=== PATIENT | female | born 1945 | race Caucasian/White ===

== ENCOUNTER 2016-08-11 09:48 | Inpatient (IN) | payer OTHER, MEDICARE ==
[~2016-08-11] VITALS: Ht 162.6 cm; Wt 73.4 kg
--- NOTE | ~2016-08-11 | EKG ---
[address] [address] ELECTROCARDIOGRAM REPORT Name: IVETTE ANTUNEZ Room #: 202-P ADM IN M.R.#: [id number] Admission: 08/11/16 Attend Phys: Johnnie Ramires Discharge: Date of : 41 Report #: [id number] THIS REPORT FOR: //name// 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
--- NOTE | ~2016-08-11 | 2DMMODE ---
[facility] [employer] [place] [address] 2 D/M-MODE ECHOCARDIOGRAM Name: HARMONYIVETTE Shae Room #: 202-P [facility] IN [facility].#: [id number] Admission: 08/11/16 Attend Phys: Johnnie Guaman Discharge: Date of : 41 Date of Service: 08/12/16 1129 Report #: [id number] THIS REPORT FOR: //name// APPROVED REPORT Study performed: 08/12/2016 09:16:33 EXAM: Comprehensive 2D, Doppler, and color-flow Echocardiogram Patient Location: Bedside Blood Pressure: 120/56 mmHg HR: 75 bpm Rhythm: Atrial Fibrillation Other Information Study Quality: Good Indications Atrial Fibrillation Hypertension/HDD 2D Dimensions RVDd: 34.02 mm LVEF(%): 55.66 (>50%) IVSd: 10.94 (7-11mm) LVOT Diam: 18.27 (18-24mm) LVDd: 40.20 mm PWd: 10.95 (7-11mm) Ascending Aorta: 34.44 mm LVDs: 28.70 (25-40mm) IVC: 23.00 mm Aortic Root: 31.70 mm Stern's LVEF: 55.66 % Volumes Left Atrial Volume (Systole) Single Plane 4CH: 59.23 mL Single Plane 2CH: 76.73 mL LA ESV Index: 41.00 mL/m2 Aortic Valve AoV Peak Cristofer.: 1.53 m/s AO Peak Gr.: 9.43 mmHg LV Max P.92 mmHg LV Max: 1.11 m/s Mitral Valve MV E Max Cristofer.: 1.27 m/s MV Decel. Time: 185.80 ms [facility] [employer] [place] [address] 2 D/M-MODE ECHOCARDIOGRAM Name: IVETTE ANTUNEZ Room #: 202-P [facility] IN [facility].#: [id number] Admission: 08/11/16 Attend Phys: Johnnie Guaman Discharge: Date of : 41 Date of Service: 08/12/16 1129 Report #: [id number] Pulmonary Valve PV Peak Cristofer.: 1.18 m/s PV Peak Gr.: 5.56 mmHg Tricuspid Valve TR Peak Cristofer.: 2.60 m/s RAP Estimate: 10.00 mmHg TR Peak Gr.: 27.16 mmHg Left Ventricle The left ventricle is normal size. There is normal LV segmental wall motion. There is normal left ventricular wall thickness. The left ventricular systolic function is normal. The left ventricular ejection fraction is within the normal range. LVEF is 60-65%. Diastolic function cannot be accurately assessed. Right Ventricle The right ventricle is normal size. The right ventricular systolic function is normal. Atria Left atrium is dilated. The right atrium size is normal. Aortic Valve Aortic valve is trileaflet. Aortic valve is calcified. Mild aortic regurgitation. There is no aortic valvular stenosis. Mitral Valve The mitral valve is normal in structure. Mitral valve leaflets are calcified. Trace mitral regurgitation. Tricuspid Valve The tricuspid valve is normal in structure. There is trace tricuspid regurgitation. The right atrial pressure is estimated at 10 mmHg. There is mild pulmonary hypertension. The estimated PAP was 37 mmHg. Pulmonic Valve The pulmonary valve is normal in structure. There is no pulmonic valvular regurgitation. Great Vessels The aortic root is normal in size. IVC is dilated and collapses >50% with inspiration. Pericardium There is no pericardial effusion. [facility] [place] [address] 2 D/M-MODE ECHOCARDIOGRAM Name: IVETTE ANTUNEZ Shae Room #: 202-P ADM IN M.R.#: [id number] Admission: 08/11/16 Attend Phys: Johnnie Guaman Discharge: Date of : 41 Date of Service: 08/12/16 1129 Report #: [id number] <Conclusion> The left ventricle is normal size. LVEF is 60-65%. Left atrium is dilated. Aortic valve is trileaflet. Aortic valve is calcified. Mild aortic regurgitation. The mitral valve is normal in structure. Mitral valve leaflets are calcified. Trace mitral regurgitation. <ELECTRONICALLY SIGNED> By: Leon Gillis MD 08/12/16 1129 1129 1129 Leon Gillis MD /INF
--- NOTE | ~2016-08-11 | EKG ---
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 : 1945 Requested By: Alissa Sher Order Number: [id number] MD: Raghav Ortega Measurements Intervals [place] Rate: 78 P: 7 RI: 125 QRS: -4 QRSD: 107 T: -17 QT: 382 QTc: 436 Interpretive Statements Sinus rhythm Atrial premature complexes Borderline T abnormalities, inferior leads Compared to ECG 06/16/2016 10:49:41 Atrial premature complex(es) now present T-wave abnormality now present Myocardial infarct finding no longer present Electronically Signed On 08-12-2016 13:39:50 CDT by Raghav Ortega [email or web address] <ELECTRONICALLY SIGNED> By: Raghav Ortega MD 08/12/16 1339 0823 Raghav Ortega MD /EPI
[~2016-08-11 09:48] MED LIST: ADULT LOW DOSE81 MG PO; ASACOL400 MG PO; CALCIUM 500 +1 EACH PO; FISH OIL 1,0001 EAC8 PO; FOLIC ACID1 MG PO; FOSAMAX 70 MG T70 M1 PO; LEVOTHYROXIN0.125 M1 PO; LIALDA1.2 GM PO; LISINOPRIL PO; LISINOPRIL20 MG PO; LIVALO4 MG PO; LOMOTIL TABLET1 EACH PO; MOBIC15 MG PO; MULTI VITAMIN1 EACH PO; NORCO 5-325 TA1 EACH PO; PLAVIX 75 MG TA75 M1 PO; PLAVIX 75 MG TA75 MG PO; PRAVACHOL40 MG PO; STRESS B1 EAC1 PO; SULFASALAZINE500 M4 PO; TOPROL XL25 MG PO; VITAMIN B-12500 MCG PO; VITAMIN C500 M1 PO; VITAMIN E400 UNIT PO; ZYRTEC 10 MG TA10 MG PO
[2016-08-11 09:50] VITALS: BP 95/54
[2016-08-11 10:34] LABS: HEMATOCRIT 32.3 % (37.0-47.0); HEMOGLOBIN 10.7 gm/dL (12.0-15.0); MANUAL DIFF YES; MCH 26.1 pg (26.0-34.0); MCHC 33.2 g/dL (28.0-37.0); MCV 78.7 fL (80.0-100.0); PLATELET COUNT 323 thou/uL (150-400); RBC 4.11 mil/uL (4.20-5.00); RDW 16.1 % (10.5-14.5); WBC 8.3 thou/uL (4.0-11.0)
[2016-08-11 10:40] LABS: CALCIUM 8.6 mg/dL (8.5-10.1); CREATININE 1.4 mg/dL (0.6-1.3); POTASSIUM 3.9 mmol/L (3.5-5.1)
[2016-08-11 10:45] LABS: ALBUMIN 2.2 g/dL (3.4-5.0); DIRECT BILIRUBIN 0.1 mg/dL (<0.1-0.3); TOTAL BILIRUBIN 0.5 mg/dL (<0.1-1.0); TOTAL PROTEIN 5.5 g/dL (6.4-8.2)
[2016-08-11] MEDS ORDERED: LISINOPRIL20 MG PO (10:50)
[2016-08-11 10:57] LABS: ABSOLUTE NEUTROPHILS 6.1 thou/uL (1.4-8.2); PLATELET ESTIMATE NORMAL; TOTAL CELL COUNT 100
[2016-08-11 10:58] LABS: ANISOCYTOSIS 1+; MICROCYTES 1+
[2016-08-11 10:59] LABS: OVALOCYTES OCCASIONAL; POIKILOCYTOSIS SLIGHT
[2016-08-11 11:09] LABS: INR 1.2; PROTIME 12.7 Seconds (9.3-11.4)
[2016-08-11 13:07] VITALS: BP 94/70
[2016-08-11 13:50] VITALS: BP 110/69
[2016-08-11 19:27] VITALS: BP 115/68
[2016-08-12] VITALS (7 sets, daily range): BP systolic 101–123; BP diastolic 47–73
[2016-08-12 04:21] LABS: ALBUMIN 1.9 g/dL (3.4-5.0); CALCIUM 7.8 mg/dL (8.5-10.1); CREATININE 1.2 mg/dL (0.6-1.3); MAGNESIUM 1.6 mg/dL (1.8-2.4); POTASSIUM 4.1 mmol/L (3.5-5.1); TOTAL BILIRUBIN 0.3 mg/dL (<0.1-1.0); TOTAL PROTEIN 5.1 g/dL (6.4-8.2)
[2016-08-12 04:37] LABS: HEMATOCRIT 30.1 % (37.0-47.0); MCH 26.3 pg (26.0-34.0); MCHC 33.1 g/dL (28.0-37.0); MCV 79.6 fL (80.0-100.0); PLATELET COUNT 314 thou/uL (150-400); RBC 3.78 mil/uL (4.20-5.00); RDW 16.3 % (10.5-14.5); WBC 6.7 thou/uL (4.0-11.0)
[2016-08-12 04:43] LABS: MANUAL DIFF YES
[2016-08-12 04:59] LABS: % SATURATION 10 % (20-39); IRON 12 ug/dL (50-170); TIBC 115 ug/dL (250-450); UIBC 103 ug/dL
[2016-08-12 08:14] LABS: ABSOLUTE NEUTROPHILS 4.4 thou/uL (1.4-8.2); METAMYELOCYTES 1 %; TOTAL CELL COUNT 100
[2016-08-12 08:15] LABS: TOXIC GRANULATION 1+
[2016-08-12 08:16] LABS: ANISOCYTOSIS 1+; PLATELET ESTIMATE NORMAL
[2016-08-13 03:18] LABS: CALCIUM 7.4 mg/dL (8.5-10.1); CREATININE 1.1 mg/dL (0.6-1.3); POTASSIUM 3.9 mmol/L (3.5-5.1)
[2016-08-13 03:21] LABS: ALBUMIN 1.8 g/dL (3.4-5.0); TOTAL BILIRUBIN 0.3 mg/dL (<0.1-1.0); TOTAL PROTEIN 4.7 g/dL (6.4-8.2)
[2016-08-13 03:37] VITALS: BP 136/75
[2016-08-13 08:05] VITALS: BP 116/64
[2016-08-13 11:10] VITALS: BP 108/63
[2016-08-13 13:05] VITALS: BP 144/75
[2016-08-13 19:50] VITALS: BP 120/74
[2016-08-14 00:30] VITALS: BP 113/63
[2016-08-14 03:40] VITALS: BP 101/60
[2016-08-14 04:32] LABS: ALBUMIN 1.5 g/dL (3.4-5.0); CALCIUM 6.6 mg/dL (8.5-10.1); CREATININE 1.2 mg/dL (0.6-1.3); MAGNESIUM 1.8 mg/dL (1.8-2.4); POTASSIUM 3.8 mmol/L (3.5-5.1); TOTAL BILIRUBIN 0.2 mg/dL (<0.1-1.0); TOTAL PROTEIN 4.5 g/dL (6.4-8.2)
[2016-08-14 07:15] VITALS: BP 152/90
[2016-08-14 12:10] VITALS: BP 102/59
[2016-08-14 16:15] VITALS: BP 100/63
[2016-08-14 19:23] VITALS: BP 104/63
[2016-08-15 03:16] LABS: ALBUMIN 1.6 g/dL (3.4-5.0); CALCIUM 6.5 mg/dL (8.5-10.1); CREATININE 0.9 mg/dL (0.6-1.3); MAGNESIUM 1.7 mg/dL (1.8-2.4); POTASSIUM 3.9 mmol/L (3.5-5.1); TOTAL BILIRUBIN 0.2 mg/dL (<0.1-1.0); TOTAL PROTEIN 3.8 g/dL (6.4-8.2)
[2016-08-15 03:32] VITALS: BP 123/65
[2016-08-15 07:16] VITALS: BP 116/56
[2016-08-15 07:20] VITALS: BP 141/63
[2016-08-15 11:35] VITALS: BP 113/63
[2016-08-15 19:46] VITALS: BP 117/68
[2016-08-16 03:50] VITALS: BP 119/79
[2016-08-16 07:15] VITALS: BP 116/74
[2016-08-16] MEDS ORDERED: FLAGYL 250 MG250 MG PO (08:49)
[2016-08-16] MEDS ORDERED: PRADAXA75 MG PO (08:50)
[2016-08-16] MEDS ORDERED: PACERONE 200 M200 M1 PO (08:50)
[2016-08-16] MEDS ORDERED: FLORANEX PACKET1 GM PO (08:51)
[2016-08-16] MEDS ORDERED: PANTOPRAZOLE SO40 M1 PO (08:51)
[2016-08-16] MEDS ORDERED: CARDIZEM CD 18180 M3 PO (09:00)
[2016-08-16] MEDS ORDERED: TOPROL XL25 MG PO (10:50)
[2016-08-16 11:30] VITALS: BP 104/65
== END 2016-08-16 14:52 | DRG 391 ==
LOC: ER 09:48 → EROBS 12:34 → 2N 12:34
PROVIDERS: Emergency Medicine; Hospitalist; Internal Medicine Gastroenterology; Nurse Practitioner
DX: A09 Infectious gastroenteritis and colitis, unspecified (principal); N17.0 Acute kidney failure with tubular necrosis; E43 Unspecified severe protein-calorie malnutrition; K50.90 Crohn's disease, unspecified, without complications; I48.92 Unspecified atrial flutter; I10 Essential (primary) hypertension; E78.5 Hyperlipidemia, unspecified; I25.10 Atherosclerotic heart disease of native coronary artery without angina pectoris; I73.9 Peripheral vascular disease, unspecified; I95.9 Hypotension, unspecified; I71.4 Abdominal aortic aneurysm, without rupture; I48.0 Paroxysmal atrial fibrillation; E83.42 Hypomagnesemia; R53.81 Other malaise; Z88.2 Allergy status to sulfonamides; Z88.0 Allergy status to penicillin; Z95.828 Presence of other vascular implants and grafts; Z79.01 Long term (current) use of anticoagulants; Z79.82 Long term (current) use of aspirin; Z87.891 Personal history of nicotine dependence; Z80.8 Family history of malignant neoplasm of other organs or systems; Z82.49 Family history of ischemic heart disease and other diseases of the circulatory system
CPT/HCPCS: 10081

== ENCOUNTER → 2016-09-09 | Outpatient (CLI) | payer OTHER, MEDICARE ==
[~2016-09-09] VITALS: Ht 162.6 cm; Wt 71.7 kg
[~2016-09-09] MED LIST changes: +ACIDOPHILUS1 EAC3 PO; +AMIODARONE PO; +B COMPLETE1 EAC1 PO; +CARDIZEM CD 18180 M3 PO; +CELEXA10 MG PO; +DIFLUCAN PO; +FLAGYL 250 MG250 MG PO; +FLORANEX GRANU1 EACH PO; +FLORANEX PACKET1 GM PO; +FUROSEMIDE 20 M20 MG PO; +HYDROCODONE-AP1 EAC6 PO; +PACERONE 200 M200 M1 PO; +PANTOPRAZOLE SO40 M1 PO; +PRADAXA75 MG PO; +[UNRECOGNIZED DRUG - OTHER] TOP
--- NOTE | ~2016-09-09 | P ---
[facility] [place] [address] PROCEDURE REPORT Name: IVETTE ANTUNEZ Room #: REG KIRSTEN Sonia#: [id number] Admission: 09/09/16 Attend Phys: Marcelo Rajput Discharge: Date of : 41 Report #: [id number] THIS REPORT FOR: //name// CC: Marcelo Francis MD DATE OF SERVICE: 09/09/2016 PROCEDURE PERFORMED: Flexible sigmoidoscopy with biopsies. HISTORY OF PRESENT ILLNESS: The patient is a 71-year-old female with a history of Crohn's disease. Last colonoscopy was 12/12/2012. At that time, 2 small polyps were noted as well as sigmoid diverticulosis, internal hemorrhoids, but otherwise normal. There were no ulcerations at that time. The patient has been having chronic diarrhea. She is on Lialda, taking 2 per day. She is also taking Lomotil as well as multiple other medications. Plan is for colonoscopy. DESCRIPTION OF PROCEDURE: The risks and benefits of the procedure were explained to the patient, those risks including but not limited to bleeding, perforation and the risk of sedation. She understood these risks and gave informed consent. Sedation was given using propofol per anesthesia. Digital rectal exam was initially performed, which showed external hemorrhoids and skin excoriation. Next, using a standard adicate timeadsinon colonoscope, the scope was placed in the patient's anus and advanced under direct vision into the distal sigmoid colon, at which point, there was obvious severe colitis. I was unable to advance the scope through this area because of narrowing. At this point, the scope was then withdrawn and a standard Fujinon upper endoscope was then placed in the patient's anus. I was able to advance the upper scope through the sigmoid colon into the descending colon. I was not able to advance the scope any further than that. The prep was fair. I did obtain stool samples and sent for studies including WBC, C. diff, Giardia and culture. There was evidence of severe active inflammation colitis throughout the left colon that was seen today. The colitis was somewhat more mild in the descending colon. Several biopsies were obtained. As the scope was slowly withdrawn into the sigmoid colon, the colitis became more severe with deep ulcerations. Biopsies in this area were also obtained. The severe colitis continued to the rectum and biopsies were obtained in this area as well. At this point, the scope was then withdrawn and the procedure terminated. The patient tolerated the procedure well. IMPRESSION: Severe colitis consistent with active Crohn's disease throughout the entire left colon. Unable to pass a standard Fujinon colonoscope through this area. I was able to pass an upper scope, however, not able to advance it any further then near the splenic flexure due to the length of scope. Multiple biopsies were obtained as well as stool samples sent for further studies. [address] [address] PROCEDURE REPORT Name: IVETTE ANTUNEZ VANIA Room #: REG KIRSTEN Scott#: [id number] Admission: 09/09/16 Attend Phys: Marcelo Rajput Discharge: Date of : 41 Report #: [id number] RECOMMENDATIONS: 1. Await biopsy and stools studies. 2. We will likely increase her Lialda at this time. May need to consider other options including steroids, Entocort potentially, possibly Imuran or even Remicade or Humira in the near future as well. We will need to discuss these options with the patient after pathology report is complete. Thank you for allowing me to participate in her care. By: 0845 1209 Marcelo Pollard MD /nt
--- NOTE | ~2016-09-09 | S ---
[facility] [address] [place] [address] SURGICAL PATH RPT PROCEDURE Name: IVETTE ANTUNEZ Room #: REG KIRSTEN Scott#: [id number] Admission: 09/09/16 Date of : 41 Discharge: Report #: [id number] Path Case #: [id number] PATHOLOGY REPORT DRAFT COLLECTION DATE: 09/09/2016 RECEIVED DATE: 09/09/2016 SPECIMEN(S) RECEIVED: A.Descending random B.Sigmoid random C.Rectum random
== END | disposition home or self-care (01) ==
LOC: GI 07:12
DX: K51.50 Left sided colitis without complications (principal); I10 Essential (primary) hypertension; I73.9 Peripheral vascular disease, unspecified; E03.9 Hypothyroidism, unspecified; E78.5 Hyperlipidemia, unspecified; F32.9 Major depressive disorder, single episode, unspecified; Z86.010 Personal history of colon polyps; Z87.891 Personal history of nicotine dependence; Z98.890 Other specified postprocedural states
CPT/HCPCS: 62110; 62900

== ENCOUNTER 2016-10-17 15:14 | Inpatient (IN) | payer OTHER, MEDICARE ==
[2016-10-17] VITALS (26 sets, daily range): BP systolic 79–131; BP diastolic 37–86
[~2016-10-17] VITALS: Ht 162.6 cm; Wt 71.2 kg
--- NOTE | ~2016-10-17 | EKG ---
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 : 1945 Requested By: Parag Marlow Order Number: [id number] MD: Gunner Neville Measurements Intervals [place] Rate: 36 P: PA: QRS: 67 QRSD: 105 T: 0 QT: 566 QTc: 438 Interpretive Statements Junctional rhythm Borderline low voltage, extremity leads Nonspecific T abnrm Compared to ECG 08/12/2016 08:23:06 Junctional bradycardia now present Electronically Signed On 10-18-2016 8:45:02 CDT by Gunner eNville [email or web address] <ELECTRONICALLY SIGNED> By: Gunner Neville MD, [facility] 10/18/16 0845 1524 1524 Gunner Neville MD, [facility] /EPI
--- NOTE | ~2016-10-17 | EKG ---
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 : 1945 Requested By: Martin Alfaro Order Number: [id number] MD: Raghav Ortega Measurements Intervals [place] Rate: 114 P: SC: QRS: -1 QRSD: 96 T: 238 QT: 308 QTc: 425 Interpretive Statements Atrial fibrillation Probable anterior infarct, age indeterminate Compared to ECG 10/17/2016 15:24:24 Myocardial infarct finding now present Junctional rhythm no longer present Electronically Signed On 10-18-2016 16:11:29 CDT by Raghav Ortega [email or web address] <ELECTRONICALLY SIGNED> By: Raghav Ortega MD 10/18/16 1611 1213 1213 Raghav Ortega MD /EPI
--- NOTE | ~2016-10-17 | HC ---
[facility] [place] [address] CONSULTATION Name: IVETTE ANTUNEZ Room #: 304-P [facility] IN M.R.#: [id number] Admission: 10/17/16 Attend Phys: Ralph Bowie MD Discharge: 10/24/16 Date of : 41 Report #: [id number] THIS REPORT FOR: //name// CC: Ralph Francis DATE OF SERVICE: 10/21/2016 HISTORY OF PRESENT ILLNESS: The patient is a 71-year-old white female with history of Crohn disease, hypertension, hyperlipidemia, recent AAA repair back in June, had returned home a couple of weeks ago from a prolonged recovery. She was doing reasonably well, and then, she began having worsening diarrhea and increasing weakness. She was admitted to [facility] with bradycardia and the heart rate in the 30s and 40s. She was noted to have significant hyperkalemia, had acute renal insufficiency, atrial fibrillation. She has severe protein-calorie malnutrition, on TPN. She has C. diff. colitis and has the prior history of Crohn disease and is on vancomycin and Flagyl with gastroenterology involved. P.o. intake is being encouraged. She also developed some posterior skin breakdown from the diarrhea. She has medical complexity with generalized debilitation and is quite weak and debilitated. We are seeing her in rehabilitation medicine consultation. PAST MEDICAL HISTORY: Includes the Crohn disease; AAA repair, 06/22/2016; hyperlipidemia; hypothyroidism; hypertension; history of atrial fibrillation, 08/11/2016; history of Staph in the surgical incision after her AAA repair surgery, and depression. PAST SURGICAL HISTORY: As noted above. She had interventions with stents in her left leg. She had the above AAA repair. HABITS: Former tobacco abuse 1 pack per day. There is a history of some alcohol use. FAMILY HISTORY: Cancer in her father, and her mother had heart problems. ALLERGIES: SULFA AND PENICILLIN. SOCIAL HISTORY: Lives in a house with a significant other, 3 steps in. None inside. Did not utilize gait aids. They had private duty to assist with housekeeping and laundry. REVIEW OF SYSTEMS: Did not offer any current complaints of chest pain, shortness of breath, and abdominal discomfort. Complains of the diarrhea, which has been a significant concern. She is trying to eat some thin liquids and apple sauce. Complains of overall generalized weakness. No focal extremity pain complaints. Did not offer any complaints of headache or any further bowel [facility] [address] [place] [address] CONSULTATION Name: IVETTE ANTUNEZ Room #: 304-P [facility] IN ..#: [id number] Admission: 10/17/16 Attend Phys: Ralph Bowie MD Discharge: 10/24/16 Date of : 41 Report #: [id number] or bladder changes. PHYSICAL EXAMINATION: GENERAL: She is a 71-year-old white female in no obvious distress. She is seen in the intensive care unit. She is alert and pleasant. VITAL SIGNS: Temperature is 97.4, pulse 63, respirations 14, blood pressure 115/65. HEENT: Appeared to be benign. NEUROLOGIC: Cranial nerves are grossly intact. Facies are symmetric. She has functional range of motion of both upper extremities. Strength is grade 3+ to 4-/5. DTRs are trace to 1. In the lower extremities, there is no focal calf swelling, functional range of motion with strength grade 3+ to 4-/5. She does have some edema of the upper extremities more than the lower extremities. She has been dependent for toilet transfers. She is sat at the edge of the bed with max assist. Sit to supine is max assist. Bed mobility is mod assist. ASSESSMENT: A 71-year-old white female with the following problem list: 1. Medical complexity with generalized debilitation. 2. Bradycardia and hypotension due to hyperkalemia. 3. Atrial fibrillation. 4. Acute renal failure, probable acute tubular necrosis, now improved. 5. Crohn disease. 6. Clostridium difficile colitis, on vancomycin and Flagyl. 7. Severe protein-calorie malnutrition for which she has been on TPN. 8. Hyperlipidemia. 9. History of atrial fibrillation. 10. History of tobacco abuse in the past. PLAN: She is quite weak and debilitated. She is at a lower functional level. At this point, we will follow along with you regarding her rehab therapy tolerance. Thank you for asking us to assist in this patient's care. <ELECTRONICALLY SIGNED> By: Jose Alfredo Menendez MD 10/25/16 1518 1330 0324 Jose Alfredo Menendez MD /nt
--- NOTE | ~2016-10-17 | EKG ---
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 Electronically Signed On 10-18-2016 16:07:29 CDT by Raghav Ortega [email or web address] <ELECTRONICALLY SIGNED> By: Raghav Ortega MD 10/18/16 1607 1704 1704 MD KRISTEN Aldana
--- NOTE | ~2016-10-17 | HC ---
[facility] [place] [address] CONSULTATION Name: IVETTE ANTUNEZ Room #: 240-P ADM IN M.R.#: [id number] Admission: 10/17/16 Attend Phys: Ralph Bowie MD Discharge: Date of : 41 Report #: [id number] THIS REPORT FOR: //name// CC: Ralph Francis DATE OF SERVICE: 10/17/2016 DATE OF ADMISSION: 10/17/2016. ATTENDING PHYSICIAN: . REASON FOR CONSULTATION: Hyperkalemia and acute kidney injury. HISTORY OF PRESENT ILLNESS: This 71-year-old patient with multiple medical problems, has chronic and severe diarrhea related to Crohn's disease and possible superimposed colitis. She was hospitalized at this hospital in August with those symptoms, but since being home, has continued to have very profuse diarrhea worsened lately. She was in rehab for 2 months, but really unable to walk or doing anything much on her own. With assistance, she can wall with a walker. She has her significant other at home, but he is actually more debilitated than she is. She became progressively weaker and unable to function. advised for a physician who told her 2 days ago to stop taking her potassium. She got on a new medicine for her Crohn's as well, but she is not sure what it is. She became progressively weak, came to the emergency room, was found to have a slow junctional rhythm, superimposed on chronic atrial fibrillation and heart rate in the 30s and hypotension. She has been treated for her hyperkalemia, given IV fluids and now seen in the ICU. PAST MEDICAL HISTORY: Former heavy smoker. She has peripheral arterial disease. She had a stent graft placed for abdominal aortic aneurysm 4 months ago. The hospitalization was complicated by a Staph aureus wound infection, which slowly got better but left her extremely debilitated, then she had the readmission in early August with colitis, diarrhea, and weakness. Creatinine was up to 1.4 from her baseline of 0.9 at that time. She has also a past history of atrial fibrillation with rapid ventricular response, the history of Crohn's disease as mentioned. She has had peripheral arterial stents in the left leg, and a renal arterial stent apparently performed incidentally in the year 2010. She also got hypothyroidism and hypertension. MEDICATIONS AT THE TIME OF ADMISSION: Included lisinopril at 30 mg a day, Cardizem CD at 180 mg a day, Protonix 40 mg daily, pravastatin 40 mg daily, aspirin 81 mg daily, levothyroxine 0.125 mg daily, mesalamine 2 tabs daily, fish oil, vitamin E, vitamin B12, acidophilus, amiodarone 1 tab b.i.d., vitamin B [address] [address] CONSULTATION Name: IVETTE ANTUNEZ Room #: 240-P ADM IN M.R.#: [id number] Admission: 10/17/16 Attend Phys: Ralph Bowie MD Discharge: Date of : 41 Report #: [id number] complex, metoprolol XL 25 mg daily, Lomotil, Pradaxa 75 mg daily, Celexa 10 mg daily, furosemide 20 mg daily, calcium, Zyrtec, Fosamax once a week, and she was on potassium, I am not sure of the dose, that was just stopped 2 days ago. SOCIAL HISTORY: She is a very heavy smoker, stopped just a couple of months ago, not much alcohol. Lives with her significant other at home. Closet family is her niece. REVIEW OF SYSTEMS: GENERAL: She has been feeling poorly and weak. EYES: Her vision is reasonably good. ENT: Hearing okay, and swallows okay. Denies mouth ulcers. ENDOCRINE: No diabetes. She does have thyroid disease, on replacement. RESPIRATORY: Not really short of breath, although she does get winded with exertion. CARDIAC: She has had chronic atrial fib as mentioned. GASTROINTESTINAL: She has chronic profuse diarrhea. GENITOURINARY: Her urine output has been down. No dysuria or hematuria. No history of renal stone disease. NEUROLOGIC: She has generalized weakness. Nothing lateralizing or specific. Really not confused, giving a fairly lucid history. PSYCHIATRIC: Denies depression or anxiety, but she is on Celexa. FAMILY HISTORY: No renal disease. PHYSICAL EXAMINATION: GENERAL: This is a thin woman looking her stated age. SKIN: Unremarkable. SKELETAL: Nonobese. HEENT: Extraocular movements are full. No scleral icterus. Hearing and vision are intact. Mucous membranes dry. NECK: Veins are flat. No lymphadenopathy. CHEST: Clear to auscultation. HEART: Regular but slow. ABDOMEN: Soft and nontender. EXTREMITIES: No edema. Peripheral pulses diminished. LABORATORY DATA: Potassium was originally 6.9 and creatinine 3.2, BUN 73, albumin only 1.6. Hemoglobin 8.5, white count 12.7, platelets 324, bands 5% are noted. Urinalysis is pending. ASSESSMENT AND PLAN: 1. Severe hyperkalemia under treatment. She is clearly volume depleted. Volume is being given back. She also will be given back some bicarbonate for her non-anion gap metabolic acidosis. She has been given high dose albuterol. Heart rate is coming up a little bit. Blood pressure is coming up a little bit, [facility] [address] [place] [address] CONSULTATION Name: IVETTE ANTUNEZ Room #: 240-P ADM IN M.R.#: [id number] Admission: 10/17/16 Attend Phys: Ralph Bowie MD Discharge: Date of : 41 Report #: [id number] and treatment will be continued. More fluids will be given. One dose of Lasix and Kayexalate are also ordered, and another ampule of sodium bicarbonate. 2. Acute kidney injury. Creatinine up, very volume depleted. Hopefully, this will resolve as we give her fluids. 3. Chronic diarrhea secondary to Crohn's disease with possible colitis. 4. Diffuse peripheral arterial disease. 5. Status post aortic abdominal aneurysm. 6. Sacrococcygeal bed sore. 7. Chronic atrial fibrillation. DICTATION ENDS HERE. <ELECTRONICALLY SIGNED> By: Nilesh Hagan MD 10/18/16 1154 1948 0655 Martin Jean MD /nt
--- NOTE | ~2016-10-17 | 2DMMODE ---
[place] [address] [place] [address] 2 D/M-MODE ECHOCARDIOGRAM Name: IVETTE ANTUNEZ Room #: 240-P ADM IN M.R.#: [id number] Admission: 10/17/16 Attend Phys: Ralph Bowie, Discharge: Date of : 41 Date of Service: 10/18/16 1938 Report #: [id number] THIS REPORT FOR: //name// APPROVED REPORT Study performed: 10/18/2016 12:55:08 EXAM: Comprehensive 2D Echocardiogram Patient Location: ICU Room #: 240 Status: routine Other Information Study Quality: Good Indications Murmur CAD 2D Dimensions IVC: 22.00 mm Left Ventricle The left ventricle is normal size. There is normal LV segmental wall motion. There is normal left ventricular wall thickness. The left ventricular systolic function is normal. The left ventricular ejection fraction is within the normal range. LVEF is 60-65%. Diastolic function was not evaluated on this limited study. Right Ventricle The right ventricle is normal size. The right ventricular systolic function is normal. Atria Left atrium is dilated. The right atrium size is normal. Aortic Valve The aortic valve is normal in structure. Aortic valve is calcified. Mitral Valve The mitral valve is normal in structure. Tricuspid Valve The tricuspid valve is normal in structure. [address] [place] [address] 2 D/M-MODE ECHOCARDIOGRAM Name: IVETTE ANTUNEZ Room #: 240-P ADM IN M.R.#: [id number] Admission: 10/17/16 Attend Phys: Ralph Bowie, Discharge: Date of : 41 Date of Service: 10/18/161937 Report #: [id number] Great Vessels The aortic root is normal in size. IVC is dilated and collapses <50% with inspiration. Pericardium There is no pericardial effusion. <Conclusion> The left ventricle is normal size. There is normal left ventricular wall thickness. LVEF is 60-65%. Diastolic function was not evaluated on this limited study. Left atrium is dilated. The aortic valve is normal in structure. Aortic valve is calcified. The mitral valve is normal in structure. There is no pericardial effusion. <ELECTRONICALLY SIGNED> By: Martin Alfaro MD, FACC 10/18/161937 37 37 Martin Alfaro MD, FACC /INF
[2016-10-17 15:42] LABS: HEMATOCRIT 26.7 % (37.0-47.0); HEMOGLOBIN 8.5 gm/dL (12.0-15.0); MCH 26.3 pg (26.0-34.0); MCHC 31.9 g/dL (28.0-37.0); MCV 82.3 fL (80.0-100.0); PLATELET COUNT 324 thou/uL (150-400); RBC 3.25 mil/uL (4.20-5.00); RDW 20.6 % (10.5-14.5); WBC 12.7 thou/uL (4.0-11.0)
[2016-10-17 15:43] LABS: MANUAL DIFF YES
[2016-10-17 15:55] LABS: PROTIME 10.6 Seconds (9.3-11.4)
[2016-10-17 15:59] LABS: ANION GAP 10 mmol/L (7-16); BUN 73 mg/dL (7-18); CALCIUM 7.3 mg/dL (8.5-10.1); CHLORIDE 108 mmol/L (98-107); CO2 16 mmol/L (21-32); CREATININE 3.2 mg/dL (0.6-1.0); GLUCOSE 109 mg/dL (74-106); NT-PRO BRAIN NAT PEPTIDE 12306 pg/mL (<300); SODIUM 134 mmol/L (136-145); TROPONIN-I < 0.04 ng/mL (<0.04-0.07)
[2016-10-17 16:04] LABS: POTASSIUM 6.9 mmol/L (3.5-5.1)
[2016-10-17 16:13] LABS: ANISOCYTOSIS 1+; TOTAL CELL COUNT 100
[2016-10-17 19:41] LABS: CALCIUM 7.9 mg/dL (8.5-10.1); CREATININE 2.9 mg/dL (0.6-1.0)
[2016-10-17 19:46] LABS: POTASSIUM 6.3 mmol/L (3.5-5.1)
[2016-10-18] VITALS (39 sets, daily range): BP systolic 71–112; BP diastolic 39–89
[2016-10-18 00:18] LABS: CALCIUM 7.8 mg/dL (8.5-10.1); CREATININE 2.8 mg/dL (0.6-1.0)
[2016-10-18 00:20] LABS: POTASSIUM 4.8 mmol/L (3.5-5.1)
[2016-10-18 06:57] LABS: HEMATOCRIT 24.3 % (37.0-47.0); HEMOGLOBIN 7.9 gm/dL (12.0-15.0); MCHC 32.6 g/dL (28.0-37.0); MCV 79.7 fL (80.0-100.0); RBC 3.05 mil/uL (4.20-5.00); RDW 19.8 % (10.5-14.5); WBC 7.4 thou/uL (4.0-11.0)
[2016-10-18 07:11] LABS: ALBUMIN 1.3 g/dL (3.4-5.0); CALCIUM 7.1 mg/dL (8.5-10.1); CREATININE 2.2 mg/dL (0.6-1.0); PHOSPHORUS 5.6 mg/dL (2.5-4.9); POTASSIUM 4.3 mmol/L (3.5-5.1)
[2016-10-18 12:48] LABS: CALCIUM 6.9 mg/dL (8.5-10.1); CREATININE 1.8 mg/dL (0.6-1.0); POTASSIUM 4.1 mmol/L (3.5-5.1)
[2016-10-18 17:59] LABS: CALCIUM 6.7 mg/dL (8.5-10.1); CREATININE 1.5 mg/dL (0.6-1.0)
[2016-10-19] VITALS (27 sets, daily range): BP systolic 75–118; BP diastolic 39–87
[2016-10-19 00:04] LABS: CALCIUM 6.8 mg/dL (8.5-10.1); CREATININE 1.3 mg/dL (0.6-1.0); POTASSIUM 4.1 mmol/L (3.5-5.1)
[2016-10-19 02:35] LABS: HEMATOCRIT 29.4 % (37.0-47.0); HEMOGLOBIN 9.5 gm/dL (12.0-15.0); MCH 26.2 pg (26.0-34.0); MCHC 32.3 g/dL (28.0-37.0); RBC 3.63 mil/uL (4.20-5.00); RDW 20.3 % (10.5-14.5)
[2016-10-20] VITALS (24 sets, daily range): BP systolic 84–118; BP diastolic 22–93
[2016-10-20 05:49] LABS: HEMATOCRIT 25.5 % (37.0-47.0); HEMOGLOBIN 8.3 gm/dL (12.0-15.0); MCH 26.1 pg (26.0-34.0); MCHC 32.4 g/dL (28.0-37.0); MCV 80.4 fL (80.0-100.0); RBC 3.17 mil/uL (4.20-5.00); WBC 4.8 thou/uL (4.0-11.0)
[2016-10-20 06:01] LABS: ALBUMIN 1.1 g/dL (3.4-5.0); CALCIUM 6.9 mg/dL (8.5-10.1); CREATININE 0.9 mg/dL (0.6-1.0); PHOSPHORUS 2.9 mg/dL (2.5-4.9); POTASSIUM 4.2 mmol/L (3.5-5.1)
[2016-10-21] VITALS (21 sets, daily range): BP systolic 95–119; BP diastolic 47–95
[2016-10-21 05:17] LABS: MCH 26.2 pg (26.0-34.0); MCHC 32.1 g/dL (28.0-37.0); MCV 81.8 fL (80.0-100.0); RBC 3.06 mil/uL (4.20-5.00); RDW 20.1 % (10.5-14.5); WBC 5.2 thou/uL (4.0-11.0)
[2016-10-21 05:36] LABS: CALCIUM 7.1 mg/dL (8.5-10.1); CREATININE 0.7 mg/dL (0.6-1.0); POTASSIUM 4.5 mmol/L (3.5-5.1)
[2016-10-22 04:10] VITALS: BP 136/72
[2016-10-22 05:00] LABS: HEMATOCRIT 24.5 % (37.0-47.0); HEMOGLOBIN 7.7 gm/dL (12.0-15.0); MCH 25.9 pg (26.0-34.0); MCHC 31.6 g/dL (28.0-37.0); RBC 2.99 mil/uL (4.20-5.00); RDW 20.1 % (10.5-14.5); WBC 5.4 thou/uL (4.0-11.0)
[2016-10-22 05:11] LABS: CALCIUM 7.1 mg/dL (8.5-10.1); CREATININE 0.7 mg/dL (0.6-1.0); POTASSIUM 4.6 mmol/L (3.5-5.1)
[2016-10-22 08:00] VITALS: BP 120/68
[2016-10-22 16:50] VITALS: BP 154/63
[2016-10-22 20:03] VITALS: BP 104/50
[2016-10-23 04:32] LABS: HEMATOCRIT 23.4 % (37.0-47.0); HEMOGLOBIN 7.6 gm/dL (12.0-15.0); MCH 26.5 pg (26.0-34.0); MCHC 32.5 g/dL (28.0-37.0); MCV 81.4 fL (80.0-100.0); RBC 2.87 mil/uL (4.20-5.00); RDW 19.8 % (10.5-14.5); WBC 4.9 thou/uL (4.0-11.0)
[2016-10-23 04:46] LABS: CALCIUM 7.3 mg/dL (8.5-10.1); CREATININE 0.6 mg/dL (0.6-1.0); POTASSIUM 4.8 mmol/L (3.5-5.1)
[2016-10-23 08:03] VITALS: BP 149/63
[2016-10-23 15:51] VITALS: BP 133/58
[2016-10-23 19:40] VITALS: BP 147/62
[2016-10-24 04:08] VITALS: BP 121/59
[2016-10-24 06:02] LABS: HEMATOCRIT 23.7 % (37.0-47.0); HEMOGLOBIN 7.5 gm/dL (12.0-15.0); MCH 25.8 pg (26.0-34.0); MCHC 31.8 g/dL (28.0-37.0); MCV 81.1 fL (80.0-100.0); RBC 2.92 mil/uL (4.20-5.00); RDW 20.1 % (10.5-14.5); WBC 5.1 thou/uL (4.0-11.0)
[2016-10-24 06:09] LABS: CALCIUM 7.2 mg/dL (8.5-10.1); CREATININE 0.6 mg/dL (0.6-1.0); POTASSIUM 4.8 mmol/L (3.5-5.1)
[2016-10-24 08:25] VITALS: BP 108/57
[2016-10-24 08:30] VITALS: BP 108/57
[2016-10-24] MEDS ORDERED: VANCOMYCIN100 MG/ML PO (14:53)
[2016-10-24] MEDS ORDERED: PREVALITE PACKE1 PKT PO (14:54)
[2016-10-24] MEDS ORDERED: PACERONE 200 M200 M1 PO (14:54)
[2016-10-24] MEDS ORDERED: FLAGYL500 MG PO (14:54)
[2016-10-24 15:12] LABS: HEP B SURFACE Ab(ANTI-HBS Non Reactive (())
== END 2016-10-24 17:00 | DRG 682 ==
LOC: ER 15:14 → EROBS 16:42 → ICU 16:42 → 3N 10-21 16:33
PROVIDERS: Emergency Medicine; Hospitalist; Internal Medicine; Internal Medicine Nephrology; Specialist
PROC: 02HV33Z Insertion of Infusion Device into Superior Vena Cava, Percutaneous Approach (ICD-10-PCS; principal; 2016-10-19)
DX: N17.9 Acute kidney failure, unspecified (principal); E43 Unspecified severe protein-calorie malnutrition; A04.7 Enterocolitis due to Clostridium difficile; K50.90 Crohn's disease, unspecified, without complications; E87.2 Acidosis; R00.1 Bradycardia, unspecified; E87.5 Hyperkalemia; E78.5 Hyperlipidemia, unspecified; E03.9 Hypothyroidism, unspecified; I10 Essential (primary) hypertension; I73.9 Peripheral vascular disease, unspecified; L89.159 Pressure ulcer of sacral region, unspecified stage; E86.9 Volume depletion, unspecified; F32.9 Major depressive disorder, single episode, unspecified; I95.9 Hypotension, unspecified; I25.10 Atherosclerotic heart disease of native coronary artery without angina pectoris; Z96.0 Presence of urogenital implants; D64.9 Anemia, unspecified; T50.905A Adverse effect of unspecified drugs, medicaments and biological substances, initial encounter; R21 Rash and other nonspecific skin eruption; I48.0 Paroxysmal atrial fibrillation; Z60.2 Problems related to living alone; I25.82 Chronic total occlusion of coronary artery; Z68.26 Body mass index [BMI] 26.0-26.9, adult; Z87.891 Personal history of nicotine dependence; Z88.0 Allergy status to penicillin; Z88.2 Allergy status to sulfonamides; Z82.49 Family history of ischemic heart disease and other diseases of the circulatory system; Z80.9 Family history of malignant neoplasm, unspecified; Z79.82 Long term (current) use of aspirin; Z79.899 Other long term (current) drug therapy; Z95.820 Peripheral vascular angioplasty status with implants and grafts; Z79.01 Long term (current) use of anticoagulants; Z98.51 Tubal ligation status; Y92.89 Other specified places as the place of occurrence of the external cause
CPT/HCPCS: 10078; 10795; 27000

== ENCOUNTER 2016-10-24 11:43 | Inpatient (IN) | payer OTHER, MEDICARE ==
[~2016-10-24] VITALS: Ht 162.6 cm; Wt 73.6 kg
--- NOTE | ~2016-10-24 | H ---
[facility] [place] [address] HISTORY AND PHYSICAL Name: IVETTE ANTUNEZ Room #: 512-P ADM IN M.R.#: [id number] Admission: 10/24/16 Attend Phys: Jose Alfredo Menendez MD Discharge: Date of : 41 Report #: [id number] THIS REPORT FOR: //name// CC: Jose Alfredo Francis DATE OF SERVICE: 10/24/2016 HISTORY OF PRESENT ILLNESS: The patient is a 71-year-old white female with history of Crohn's disease, hypertension, hyperlipidemia, recent AAA repair in June who had returned home with couple of weeks ago from a prolonged recovery. She was doing reasonably well, when she began having worsening diarrhea and increased weakness. She was admitted to [facility] with bradycardia and heart rate in 30s-40s. She was noted to have significant hyperkalemia, had acute renal insufficiency, atrial fibrillation and severe protein-calorie malnutrition for which she was on TPN. She had C. diff colitis, has a prior history of Crohn's disease on vancomycin and Flagyl with Gastroenterology involved. She also developed some posterior skin breakdown from the diarrhea. She was able to be taken off the TPN just prior to rehabilitation transfer. She is noted to have medical complexity with generalized debilitation. She has now been admitted for acute in-hospital inpatient rehabilitation. PAST MEDICAL HISTORY: Includes Crohn's disease, AAA repair 06/22/2016, hyperlipidemia, hypothyroidism, hypertension, history of atrial fibrillation, 08/11/2016, history of Staph and a surgical incision after her AAA repair surgery and depression. PAST SURGICAL HISTORY: She has had interventions with stent in left leg. She has had the above AAA repair. HABITS: Former tobacco abuse 1 pack per day. There is a history of some alcohol use. FAMILY HISTORY: Cancer in her father and her mother had heart problems. ALLERGIES: SULFA AND PENICILLIN. SOCIAL HISTORY: Lives in a house with a significant other, 3 steps in. None inside. She did not utilize gait aids premorbidly. They had private duty to assist with housekeeping and laundry. REVIEW OF SYSTEMS: No complaints of chest pain, shortness of breath. She had some nausea earlier, was given Zofran. Complains of overall generalized weakness. [facility] [address] [place] [address] HISTORY AND PHYSICAL Name: IVETTE ANTUNEZ CROCKER Room #: 512-P [facility] IN ..#: [id number] Admission: 10/24/16 Attend Phys: Jose Alfredo Menendez MD Discharge: Date of : 41 Report #: [id number] PHYSICAL EXAMINATION: GENERAL: A 71-year-old white female who was seen earlier. She was in no obvious distress and was somewhat sleepy. VITAL SIGNS: Temperature 36.8, pulse 80, respirations 24, blood pressure 118/56. HEENT: Appeared to be benign. Facies appeared symmetric. CHEST: Sounded clear to auscultation. CARDIOVASCULAR: Sounded regular with extra beats. ABDOMEN: She may be slightly distended, bowel sounds positive. GENITOURINARY AND RECTAL: Deferred. EXTREMITIES: She has the dressing clean, dry and intact on sacral wounds. She needs encouragement to turn. Functional range of motion of both upper and lower extremities with strength grade 3+ to 4-/5. She has been min assist for basic transfers and has started to ambulate just a few short steps prior to her admission to the rehab sy. There is no focal calf swelling. ASSESSMENT: A 71-year-old white female with the following problem list: 1. Medical complexity with generalized debilitation. 2. Bradycardia and hypotension due to hyperkalemia. 3. Atrial fibrillation. 4. Acute renal failure, probably acute tubular necrosis, now improved. 5. Crohn's disease. 6. Clostridium difficile colitis for which she has been on vancomycin and Flagyl. 7. Severe protein calorie malnutrition, for which she was on TPN. 8. Hyperlipidemia. 9. History of atrial fibrillation. 10. History of tobacco abuse in the past. 11. Sacral wound with wound care nurse involved. PLAN: The patient is admitted for acute in-hospital inpatient rehabilitation. From a postadmission physician evaluation perspective, there are no relevant changes since the preadmission screening. Please see the above review of prior and current medical and functional conditions and comorbidities. Please see the patient's previous and current functional status. As far as risk of complications, she has the multiple medical comorbidities as noted above. Initial plan of care involves the interdisciplinary acute inpatient rehabilitation program with the goal of maximizing the patient's functional independence, so that she can hopefully return back to her prior living situation. Measurable functional goals would be for her to hopefully improve with her functional mobility to be ambulatory at the walker level and to be independent with basic ADLs. Prognosis is reasonably good with estimated length of stay probably fairly long as she is at a lower level functionally. Potential barriers would include her multiple medical comorbidities and decreased functional status. [facility] [address] [place] [address] HISTORY AND PHYSICAL Name: IVETTE ANTUNEZ Room #: 512-P ADM IN M.R.#: [id number] Admission: 10/24/16 Attend Phys: Jose Alfredo Menendez MD Discharge: Date of : 43 Report #: [id number] The patient meets diagnostic criteria for an acute in-hospital inpatient rehabilitation stay. She meets medical necessity criteria and we will have the multiple reporting process consultant physicians continue to follow. She will need to have continued close follow regarding her wound care issues. She does have the tolerance for an acute inpatient rehabilitation stay and has appropriate discharge goals back to the home setting. <ELECTRONICALLY SIGNED> By: Jose Alfredo Menendez MD 10/25/16 1518 1055 1158 Jose Alfredo Menendez MD /nt
--- NOTE | ~2016-10-24 | HC ---
[facility] [place] [address] CONSULTATION Name: IVETTE ANTUNEZ Room #: 512-P ADM IN M.R.#: [id number] Admission: 10/24/16 Attend Phys: Jose Alfredo Menendez MD Discharge: Date of : 41 Report #: [id number] THIS REPORT FOR: //name// CC: Jose Alfredo Francis REASON FOR CONSULTATION: I was asked to evaluate C. difficile colitis in the setting of Crohn's disease. HISTORY OF PRESENT ILLNESS: The patient was a 71-year-old with longstanding Crohn's disease that is well controlled on Lialda. In June, she underwent an endovascular stent of her abdominal aortic aneurysm. This subsequently was complicated by incisional infection that was treated with antibiotic therapy. She was on doxycycline for this. Subsequently, she developed diarrhea, which was fairly new for her. Trial of metronidazole did not improve situation. She was hospitalized in August, found to have atrial fibrillation with rapid ventricular response. CT scan did show evidence of pancolitis, mostly in the descending colon. C. difficile was negative. She was set up for an outpatient flexible sigmoidoscopy, which was completed on September 09. This showed severe colitis. From this, she was started on Imuran and prednisone 40 mg a day and began a taper. Despite this, she continues to have diarrhea. She was rehospitalized and placed on vancomycin and metronidazole this past week. Stool studies now show C. difficile positive. She has not had a repeat imaging or endoscopy. Since being on metronidazole and vancomycin, she has noted that her stools have improved some, but she still has distention and frequent loose stools, mild cramping. No nausea or vomiting. She has several stools a day. Denies any fever, chills or sweats. ALLERGIES: SULFA AND PENICILLIN. MEDICATIONS: As noted on her MAR including vancomycin and metronidazole . PAST MEDICAL HISTORY: In addition to the above, she has had coronary artery disease, carotid artery disease, hypertension, hyperlipidemia, hypothyroidism, tubal ligation, bilateral iliac stents, right renal stent. FAMILY HISTORY: Cancer, coronary disease. SOCIAL HISTORY: Nonsmoker, smoked cigarettes up until this past year. No HIV risks. REVIEW OF SYSTEMS: No cough, sputum, nausea or vomiting. No dysuria. She does have peripheral edema, which is a newer issue for her. Her atrial fibrillation appears to be well controlled now. PHYSICAL EXAMINATION: VITAL SIGNS: She is afebrile, hemodynamically stable. [facility] [address] [place] [address] CONSULTATION Name: IVETTE ANTUNEZ Room #: 512-P [place] IN [facility].#: [id number] Admission: 10/24/16 Attend Phys: Jose Alfredo Menendez MD Discharge: Date of : 41 Report #: [id number] GENERAL: She is sitting up in a chair, did need assistance on standing. HEENT: Unremarkable. CHEST: Clear. HEART: Regular, without murmur. ABDOMEN: Distended, nontender, no other masses appreciated. No hepatosplenomegaly. EXTREMITIES: Her groin incisions were unremarkable with healed scar. 2+ peripheral edema with anasarca mostly in her extremities. LABORATORY STUDIES: Sodium , potassium 4.7, bicarbonate 25, creatinine 0.7. Hemoglobin 7.8, white count 7.7, platelet count 226,000. Stool culture was negative on October 24 and her abdominal x-ray does show nodular changes to the descending colon. Chest x-ray, basilar atelectasis. From 08/11/2016, CT scan of the abdomen did show descending colitis with an aortic aneurysm 4 x 4.9 cm. IMPRESSION AND PLAN: A 71-year-old with Crohn's disease, longstanding and fairly quiescent, now with persisting colitis, C. difficile positive now. I would be aggressive with her treatment program and will use intravenous metronidazole along with high dose vancomycin. We will see if we can get this to calm down. May need to repeat endoscopy and consider a fecal transplant prior to initiating her Humira or alternative biologic agent. <ELECTRONICALLY SIGNED> By: Ton Nguyễn MD 10/27/16 1047 1311 2217 Ton Nguyễn MD /nt
--- NOTE | ~2016-10-24 | PLAN ---
[facility] [place] [address] REHAB UNIT PLAN OF CARE Name: IVETTE ANTUNEZ Room #: 512-P ADM IN M.R.#: [id number] Admission: 10/24/16 Attend Phys: Jose Alfredo Menendez MD Discharge: Date of : 41 Report #: [id number] THIS REPORT FOR: //name// CC: Jose Alfredo Francis DATE OF SERVICE: 10/26/2016 HISTORY OF PRESENT ILLNESS: She still complains of some bloating and diarrhea. Overall, she notes that her edema is better. PHYSICAL EXAMINATION: Her temperature is 36.6, pulse 80, respirations 20 and blood pressure 80/55. She was documented as having 5 stools so far today. These were loose stools. She continues on the lactobacillus with Flagyl and oral vancomycin. Functionally, she is working in therapies with transfers to min assist, gait 50 feet min assist with a front-wheeled walker. In occupational therapy, lower body dressing is max assist for underwear, dependent for socks and hose. ASSESSMENT: 1. Medical complexity with generalized debilitation. 2. Bradycardia and hypotension. 3. Atrial fibrillation. 4. Acute renal failure, probably acute tubular necrosis, improved. 5. Crohn's disease. 6. Clostridium difficile colitis, for which she has been on vancomycin and Flagyl. 7. Severe protein-calorie malnutrition. She was on TPN prior to rehabilitation admission. 8. Hyperlipidemia. 9. History of atrial fibrillation. 10. Sacral wound with wound care nurse involved and picture is noted in chart. We are encouraging her to stay off of her sacral area and increasing her activity. PLAN: The overall plan of care is based on the preadmission screen, post-admission physician evaluation and information garnered from therapy assessments. 1. Estimated length of stay is probably at least 10 days to 2 weeks and likely longer pending progress. 2. Medical prognosis is reasonably good. 3. Anticipated interventions includes the interdisciplinary acute inpatient rehabilitation program with PT and OT working with her, rehab nursing assisting regarding medication management, skin care prophylaxis as well as treatment of her sacral wound and medication management education. Case management is [address] [address] REHAB UNIT PLAN OF CARE Name: IVETTE ANTUNEZ Room #: 512-P ADM IN .R.#: [id number] Admission: 10/24/16 Attend Phys: Jose Alfredo Menendez MD Discharge: Date of : 41 Report #: [id number] involved as well as the multiple consulting physicians. 4. Anticipated functional outcomes would be for her to improve as far as her functional mobility and ADLs, hopefully return back to the home setting. 5. Discharge destination would be back home where she lives with her significant other. 6. Expected therapy by discipline includes PT and OT 1-1/2 hours per day each 5 days a week throughout the duration of the acute inpatient rehabilitation stay. By: 1000 1118 Jose Alfredo Menendez MD /delicia
[2016-10-24] MEDS ORDERED: VANCOMYCIN100 MG/ML PO (14:53)
[2016-10-24] MEDS ORDERED: FLAGYL500 MG PO (14:54)
[2016-10-24] MEDS ORDERED: PREVALITE PACKE1 PKT PO (14:54)
[2016-10-24] MEDS ORDERED: PACERONE 200 M200 M1 PO (14:54)
[2016-10-25 04:21] LABS: HEMATOCRIT 23.9 % (37.0-47.0); HEMOGLOBIN 7.8 gm/dL (12.0-15.0); MCH 26.4 pg (26.0-34.0); MCHC 32.8 g/dL (28.0-37.0); MCV 80.4 fL (80.0-100.0); RBC 2.97 mil/uL (4.20-5.00); RDW 20.2 % (10.5-14.5); WBC 7.7 thou/uL (4.0-11.0)
[2016-10-25 04:36] LABS: CALCIUM 7.3 mg/dL (8.5-10.1); CREATININE 0.7 mg/dL (0.6-1.0); POTASSIUM 4.7 mmol/L (3.5-5.1)
[2016-10-25 05:27] VITALS: BP 118/56
[2016-10-25 16:00] VITALS: BP 90/47
[2016-10-25 22:03] VITALS: BP 101/60
[2016-10-26 06:00] VITALS: BP 122/76
[2016-10-26 13:08] LABS: HEMATOCRIT 23.1 % (37.0-47.0); HEMOGLOBIN 7.5 gm/dL (12.0-15.0); MCH 26.4 pg (26.0-34.0); MCHC 32.5 g/dL (28.0-37.0); MCV 81.2 fL (80.0-100.0); RBC 2.85 mil/uL (4.20-5.00); RDW 19.9 % (10.5-14.5); WBC 7.1 thou/uL (4.0-11.0)
[2016-10-26 13:27] LABS: CALCIUM 7.1 mg/dL (8.5-10.1); CREATININE 0.9 mg/dL (0.6-1.0); POTASSIUM 4.5 mmol/L (3.5-5.1)
[2016-10-26 14:53] VITALS: BP 103/45; BP 98/37
[2016-10-26 18:37] VITALS: BP 103/45
[2016-10-27 03:57] VITALS: BP 117/60
[2016-10-27 05:59] LABS: HEMATOCRIT 27.3 % (37.0-47.0); HEMOGLOBIN 9.1 gm/dL (12.0-15.0)
[2016-10-27 06:11] LABS: ALBUMIN 1.3 g/dL (3.4-5.0); CALCIUM 7.1 mg/dL (8.5-10.1); CREATININE 0.9 mg/dL (0.6-1.0); MAGNESIUM 1.4 mg/dL (1.8-2.4); POTASSIUM 4.1 mmol/L (3.5-5.1); TOTAL BILIRUBIN 0.2 mg/dL (<0.1-1.0); TOTAL PROTEIN 4.5 g/dL (6.4-8.2)
[2016-10-27 15:46] VITALS: BP 110/53
[2016-10-28 02:37] VITALS: BP 118/56
[2016-10-28 08:45] VITALS: BP 97/52
[2016-10-28 16:18] LABS: HEMATOCRIT 28.7 % (37.0-47.0); HEMOGLOBIN 9.2 gm/dL (12.0-15.0); MCH 26.7 pg (26.0-34.0); MCHC 32.2 g/dL (28.0-37.0); MCV 83.1 fL (80.0-100.0); RBC 3.45 mil/uL (4.20-5.00); RDW 20.1 % (10.5-14.5); WBC 7.6 thou/uL (4.0-11.0)
[2016-10-28 16:26] LABS: CALCIUM 7.5 mg/dL (8.5-10.1); CREATININE 0.8 mg/dL (0.6-1.0); POTASSIUM 3.7 mmol/L (3.5-5.1)
[2016-10-29 04:50] VITALS: BP 109/48
[2016-10-29 16:15] VITALS: BP 95/50
[2016-10-29 17:15] LABS: HEMATOCRIT 26.4 % (37.0-47.0); HEMOGLOBIN 8.7 gm/dL (12.0-15.0); MCH 26.8 pg (26.0-34.0); MCHC 32.8 g/dL (28.0-37.0); MCV 81.9 fL (80.0-100.0); RBC 3.22 mil/uL (4.20-5.00); WBC 5.1 thou/uL (4.0-11.0)
[2016-10-29 17:24] LABS: CALCIUM 7.3 mg/dL (8.5-10.1); CREATININE 0.8 mg/dL (0.6-1.0); POTASSIUM 3.6 mmol/L (3.5-5.1)
[2016-10-30 03:36] VITALS: BP 114/62
[2016-10-30 16:15] VITALS: BP 107/51
[2016-10-31 05:05] VITALS: BP 112/57
[2016-10-31] MEDS ORDERED: IRON325 PO (17:24)
[2016-10-31] MEDS ORDERED: FLOMAX0.4 MG PO (17:24)
== END 2016-10-31 20:02 | DRG 947 ==
PROVIDERS: Family Medicine; Internal Medicine; Internal Medicine Gastroenterology; Nurse Practitioner; Physical Medicine & Rehabilitation
PROC: 30233N1 Transfusion of Nonautologous Red Blood Cells into Peripheral Vein, Percutaneous Approach (ICD-10-PCS; 2016-10-26)
PROC: B548ZZA Ultrasonography of Superior Vena Cava, Guidance (ICD-10-PCS; principal; 2016-10-31)
PROC: 02HV33Z Insertion of Infusion Device into Superior Vena Cava, Percutaneous Approach (ICD-10-PCS; principal; 2016-10-31)
PROC: B5181ZA Fluoroscopy of Superior Vena Cava using Low Osmolar Contrast, Guidance (ICD-10-PCS; principal; 2016-10-31)
DX: R53.81 Other malaise (principal); E43 Unspecified severe protein-calorie malnutrition; N17.9 Acute kidney failure, unspecified; K50.90 Crohn's disease, unspecified, without complications; A04.7 Enterocolitis due to Clostridium difficile; I95.9 Hypotension, unspecified; R00.1 Bradycardia, unspecified; I48.91 Unspecified atrial fibrillation; Z68.27 Body mass index [BMI] 27.0-27.9, adult; E78.5 Hyperlipidemia, unspecified; I25.10 Atherosclerotic heart disease of native coronary artery without angina pectoris; I10 Essential (primary) hypertension; E03.9 Hypothyroidism, unspecified; T50.905A Adverse effect of unspecified drugs, medicaments and biological substances, initial encounter; F32.9 Major depressive disorder, single episode, unspecified; F41.9 Anxiety disorder, unspecified; D64.9 Anemia, unspecified; Z79.899 Other long term (current) drug therapy; Z79.82 Long term (current) use of aspirin; Z88.2 Allergy status to sulfonamides; Z88.0 Allergy status to penicillin; Z82.49 Family history of ischemic heart disease and other diseases of the circulatory system; Z80.9 Family history of malignant neoplasm, unspecified; Z98.62 Peripheral vascular angioplasty status; Z87.891 Personal history of nicotine dependence
CPT/HCPCS: 10112

== ENCOUNTER 2016-11-12 16:00 | Inpatient (IN) | payer OTHER, MEDICARE ==
[~2016-11-12] VITALS: Ht 167.6 cm; Wt 74.1 kg
--- NOTE | ~2016-11-12 | S ---
[facility] [address] SURGICAL PATH RPT PROCEDURE Name: SHEA SIN Room #: 453-P ADM IN M.R.#: [id number] Admission: 11/12/16 Date of : 41 Discharge: Report #: [id number] Path Case #: [id number] PATHOLOGY REPORT COLLECTION DATE: 11/17/2016 RECEIVED DATE: 11/18/2016 SUBMITTING PHYS: Dr. Marcelo Pollard OTHER PHYS: Dr. Davi Francis SPECIMEN(S) RECEIVED: A.Bx of terminal ileum B.Bx of sigmoid colon C.Bx of rectum * * * * * * * * * * * * FINAL DIAGNOSIS: A. Small intestinal mucosa "biopsy terminal ileum": - Acute ulceration with necrotic acute inflammatory exudate. - Most 99% of the tissue is inflammatory exudate. B. Colonic mucosa "biopsy sigmoid colon": - Moderately active chronic colitis with acute cryptitis, crypt absceses, architectural distortion, and reactive inflammatory change. - There is no evidence of adenomatous change high-grade dysplasia or malignancy. - See comment. C. Colonic mucosa "biopsy of rectum": - Inactive chronic colitis. - There is no evidence of adenomatous change, high-grade dysplasia, or malignancy. (SHA:kathy;11/21/2016) COMMENT: The ulceration and moderately active chronic colitis is consistent with a history of inflammatory bowel disease. Part B of this case is also reviewed by Dr. Zeynep Barker. PATHOLOGIST: Max Tomlinson M.D. REPORT ELECTRONICALLY SIGNED BY: Max Tomlinson M.D. DATE/TIME: 11/21/2016 11:48 * * * * * * * * * * * * GROSS PATHOLOGY: A. Received in formalin labeled "Seha Sin, biopsy of terminal ileum," is a segment of gray soft tissue measuring 0.5 cm in maximum [facility] [address] [place] [address] SURGICAL PATH RPT PROCEDURE Name: SHEA SIN Room #: 453-[facility] IN [facility].#: [id number] Admission: 11/12/16 Date of : 41 Discharge: Report #: [id number] Path Case #: [id number] dimension. The specimen is submitted entirely in cassette A1. B. Received in formalin labeled "Shea Sin, biopsy of sigmoid colon," are 4 segments of gray soft tissue measuring 0.5 x 0.4 x 0.2 cm in aggregate dimensions and ranging from 0.1 to 0.3 cm in maximum dimension. The specimen is submitted entirely in cassette B1. C. Received in formalin labeled "Shea Sin, biopsy of rectum," are 4 segments of gray soft tissue measuring 0.5 x 0.5 x 0.2 cm in aggregate dimensions and ranging from 0.2 to 0.4 cm in maximum dimension. The specimen is submitted entirely in cassette C1. (KAH; 11/18/2016) CLINICAL HISTORY: Pre-op diagnosis: Colitis, history of Crohn's Post-op diagnosis: Severe colitis INITIAL CPT CODE(S): A; 79925 B; 07433 C; 50520 Professional services performed by [facility] at [facility] [address], [place] [address] Technical services performed by [facility] at [address] [place] [address], [address], [place] [address]. [facility] [address] [place] [address] PHONE: [phone] DIRECTOR: Kapil Florez M.D. * * * END OF REPORT * * *
--- NOTE | ~2016-11-12 | EKG ---
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: HOLLI : 1945 Requested By: Suyapa Eugene Order Number: [id number] MD: Gunner Neville Measurements Intervals [place] Rate: 80 P: 28 NE: 137 QRS: 3 QRSD: 93 T: -13 QT: 383 QTc: 442 Interpretive Statements Sinus rhythm Poor R wave progression Compared to ECG 10/18/2016 12:13:29 Atrial fibrillation no longer present Electronically Signed On 11-14-2016 8:00:49 CDT by Gunner Neville [email or web address] <ELECTRONICALLY SIGNED> By: Gunner Neville MD, [facility] 11/14/16799 180 02 Gunner Neville MD, [facility] /EPI
[~2016-11-12 16:00] MED LIST changes: +FLAGYL500 MG PO; +FLOMAX0.4 MG PO; +IRON325 PO; +PREVALITE PACKE1 PKT PO; +VANCOMYCIN100 MG/ML PO
[2016-11-12 16:03] VITALS: BP 113/55
[2016-11-12 17:02] LABS: HEMATOCRIT 36.5 % (37.0-47.0); HEMOGLOBIN 11.5 gm/dL (12.0-15.0); MCH 25.9 pg (26.0-34.0); MCHC 31.6 g/dL (28.0-37.0); MCV 82.1 fL (80.0-100.0); PLATELET COUNT 315 thou/uL (150-400); RBC 4.44 mil/uL (4.20-5.00); RDW 21.4 % (10.5-14.5); WBC 19.5 thou/uL (4.0-11.0)
[2016-11-12 17:03] LABS: MANUAL DIFF YES
[2016-11-12 17:22] LABS: ANION GAP 10 mmol/L (7-16); BUN 50 mg/dL (7-18); CALCIUM 6.7 mg/dL (8.5-10.1); CHLORIDE 124 mmol/L (98-107); CO2 19 mmol/L (21-32); CREATININE 1.8 mg/dL (0.6-1.0); GLUCOSE 308 mg/dL (74-106); POTASSIUM 3.1 mmol/L (3.5-5.1); SODIUM 153 mmol/L (136-145)
[2016-11-12 17:25] LABS: ABSOLUTE NEUTROPHILS 18.5 thou/uL (1.4-8.2); TOTAL CELL COUNT 100
[2016-11-12 17:26] LABS: ANISOCYTOSIS 2+; HYPOCHROMASIA 1+; POIKILOCYTOSIS SLIGHT; POLYCHROMASIA OCCASIONAL
[2016-11-12 17:27] LABS: ALBUMIN 1.1 g/dL (3.4-5.0); ALKALINE PHOSPHATASE 57 U/L (46-116); DIRECT BILIRUBIN < 0.1 mg/dL (<0.1-0.3); SGOT 14 U/L (15-37); SGPT 17 U/L (30-65); TOTAL BILIRUBIN 0.2 mg/dL (<0.1-1.0); TOTAL PROTEIN 4.3 g/dL (6.4-8.2)
[2016-11-12 17:29] LABS: URINE BILIRUBIN NEGATIVE (Negative); URINE BLOOD TRACE (Negative); URINE COLOR YELLOW; URINE GLUCOSE-RANDOM* NEGATIVE (Negative); URINE KETONES NEGATIVE (Negative); URINE NITRITE POSITIVE (Negative); URINE PROTEIN (DIPSTICK) 2+ (Negative); URINE UROBILINOGEN 0.2 E.U./dl (0.2-1.0)
[2016-11-12 17:37] LABS: CALCIUM 6.7 mg/dL (8.5-10.1); CREATININE 1.7 mg/dL (0.6-1.0); POTASSIUM 3.2 mmol/L (3.5-5.1)
[2016-11-12 17:38] LABS: ABG SAMPLE TYPE ARTERIAL; BE(vivo) -8.6 mmol/L (-2 to +3); HCO3 15.2 mmol/L (22.0-26.0); O2(CT) 16.4 mL/dL (15.0-23.0); O2Hb 95.4 % (92.0-98.0); PCO2 26.9 mmHg (35.0-45.0); PO2 99.9 mmHg (80.0-100.0); sO2 97.5 % (92.0-98.0)
[2016-11-12 17:39] LABS: LACTATE 3.59 mmol/L (0.5-2.0); STICK SITE L.RADIAL
[2016-11-12 17:39] LABS: ABG SAMPLE TYPE VENOUS; BE(vivo) -9.2 mmol/L (-2 to +3); HCO3 15.6 mmol/L (22.0-26.0); LACTATE 3.37 mmol/L (0.5-2.0); O2(CT) 11.6 mL/dL (15.0-23.0); O2Hb VENOUS 70.9 (65.0-85.0); PCO2 VENOUS 30.6 mmHg (41.0-51.0); PO2 VENOUS 37.8 mmHg (35.0-45.0); sO2 VENOUS 68.6 % (65.0-85.0); tCO2 16.6 mmol/L (24.0-30.0)
[2016-11-12 17:41] LABS: ALBUMIN 1.1 g/dL (3.4-5.0); TOTAL BILIRUBIN 0.2 mg/dL (<0.1-1.0); TOTAL PROTEIN 3.8 g/dL (6.4-8.2)
[2016-11-12 17:42] LABS: STICK SITE CENTRAL LINE
[2016-11-12 17:43] LABS: CASTS None Seen /LPF (None Seen); CRYSTALS None Seen /LPF (None Seen); SQUAMOUS 0-3 Few /LPF (0-3)
[2016-11-12 17:44] LABS: BACTERIA >30 Many /HPF (None Seen); URINE RBC 0-2 Rare /HPF (0-2); URINE WBC >25 Many /HPF (0-5)
[2016-11-12 17:47] LABS: APTT 33.6 Seconds (24.5-32.8); FIBRINOGEN 464.8 mg/dL (210-360); INR 1.2; PROTIME 12.2 Seconds (9.3-11.4)
[2016-11-12 19:43] LABS: HEMATOCRIT 33.1 % (37.0-47.0); HEMOGLOBIN 10.6 gm/dL (12.0-15.0)
[2016-11-12 20:55] LABS: ABG SAMPLE TYPE ARTERIAL; BE(vivo) -10.6 mmol/L (-2 to +3); HCO3 15.2 mmol/L (22.0-26.0); LACTATE 3.07 mmol/L (0.5-2.0); O2(CT) 10.6 mL/dL (15.0-23.0); O2Hb VENOUS 72.2 (65.0-85.0); PCO2 VENOUS 33.4 mmHg (41.0-51.0); PO2 VENOUS 39.9 mmHg (35.0-45.0); STICK SITE LINE; sO2 VENOUS 68.8 % (65.0-85.0); tCO2 16.2 mmol/L (24.0-30.0)
[2016-11-12 21:23] LABS: CALCIUM 6.3 mg/dL (8.5-10.1); CREATININE 1.7 mg/dL (0.6-1.0); POTASSIUM 3.2 mmol/L (3.5-5.1)
[2016-11-12 22:04] LABS: ABG SAMPLE TYPE VENOUS; BE(vivo) -11.2 mmol/L (-2 to +3); HCO3 14.6 mmol/L (22.0-26.0); LACTATE 3.15 mmol/L (0.5-2.0); O2(CT) 9.9 mL/dL (15.0-23.0); O2Hb VENOUS 65.9 (65.0-85.0); PCO2 VENOUS 32.3 mmHg (41.0-51.0); PO2 VENOUS 35.5 mmHg (35.0-45.0); STICK SITE LINE; sO2 VENOUS 61.2 % (65.0-85.0); tCO2 15.6 mmol/L (24.0-30.0)
[2016-11-12] MEDS ORDERED: VANCOMYCIN100 MG/M1 PO (22:19)
[2016-11-12] MEDS ORDERED: LIPITOR 20 MG T20 M1 PO (22:20)
[2016-11-12] MEDS ORDERED: LEVOTHYROXINE100 MC1 IV (22:22)
[2016-11-12] MEDS ORDERED: CLARITIN10 MG PO (22:23)
[2016-11-12] MEDS ORDERED: IRON325 PER TUBE (22:24)
[2016-11-12] MEDS ORDERED: CLONAZEPAM 1 MG1 M1 PER TUBE (22:25)
[2016-11-12] MEDS ORDERED: CHOLESTYRAMINE R5 GM PER TUBE (22:27)
[2016-11-12] MEDS ORDERED: PANTOPRAZOLE IV (22:28)
[2016-11-12] MEDS ORDERED: METRONIDAZOLE IV (22:28)
[2016-11-12] MEDS ORDERED: NYSTATIN 1100000 U/M PO (22:29)
[2016-11-12] MEDS ORDERED: MESALAMINE800 MG PO (22:30)
[2016-11-12] MEDS ORDERED: DRONABINOL5 MG PO (22:31)
[2016-11-12] MEDS ORDERED: CHOLESTYRAMINE PER TUBE (22:43)
[2016-11-12] MEDS ORDERED: LEXAPRO 10 MG T10 M1 PER TUBE (22:44)
[2016-11-12] MEDS ORDERED: LACTOBACILLUS PER TUBE (22:45)
[2016-11-13] VITALS (95 sets, daily range): BP systolic 78–148; BP diastolic 41–133
[2016-11-13 00:13] LABS: HEMATOCRIT 32.6 % (37.0-47.0); HEMOGLOBIN 10.4 gm/dL (12.0-15.0)
[2016-11-13 00:37] LABS: CALCIUM 6.3 mg/dL (8.5-10.1); CREATININE 1.8 mg/dL (0.6-1.0); POTASSIUM 3.3 mmol/L (3.5-5.1)
[2016-11-13 00:39] LABS: ABG SAMPLE TYPE ARTERIAL; BE(vivo) -10.9 mmol/L (-2 to +3); HCO3 13.2 mmol/L (22.0-26.0); LACTATE 2.52 mmol/L (0.5-2.0); O2Hb 95.4 % (92.0-98.0); PO2 95.1 mmHg (80.0-100.0); STICK SITE RRA; pH 7.342 (7.360-7.450); sO2 97.1 % (92.0-98.0)
[2016-11-13 00:53] LABS: APTT 35.1 Seconds (24.5-32.8); INR 1.2; PROTIME 12.5 Seconds (9.3-11.4)
[2016-11-13 05:34] LABS: ABG SAMPLE TYPE ARTERIAL; BE(vivo) -12.7 mmol/L (-2 to +3); HCO3 11.9 mmol/L (22.0-26.0); LACTATE 1.43 mmol/L (0.5-2.0); O2(CT) 14.2 mL/dL (15.0-23.0); O2Hb 95.5 % (92.0-98.0); PO2 97.2 mmHg (80.0-100.0); tCO2 12.7 mmol/L (24.0-30.0)
[2016-11-13 05:35] LABS: HEMATOCRIT 24.6 % (37.0-47.0); MCHC 31.7 g/dL (28.0-37.0); MCV 81.9 fL (80.0-100.0); RDW 20.9 % (10.5-14.5); WBC 11.4 thou/uL (4.0-11.0)
[2016-11-13 05:35] LABS: PCO2 24.3 mmHg (35.0-45.0); STICK SITE R.BRACHIAL; pH 7.309 (7.360-7.450)
[2016-11-13 05:39] LABS: HEMOGLOBIN 7.8 gm/dL (12.0-15.0); MANUAL DIFF YES; PLATELET COUNT 195 thou/uL (150-400)
[2016-11-13 06:10] LABS: ANISOCYTOSIS 1+; PLATELET ESTIMATE NORMAL; TOTAL CELL COUNT 100
[2016-11-13 06:27] LABS: ALBUMIN 0.9 g/dL (3.4-5.0); CALCIUM 6.4 mg/dL (8.5-10.1); CREATININE 1.8 mg/dL (0.6-1.0); POTASSIUM 3.7 mmol/L (3.5-5.1); TOTAL BILIRUBIN 0.2 mg/dL (<0.1-1.0); TOTAL PROTEIN 3.9 g/dL (6.4-8.2)
[2016-11-13 18:08] LABS: HEMATOCRIT 31.2 % (37.0-47.0)
[2016-11-13 18:13] LABS: HEMOGLOBIN 10.5 gm/dL (12.0-15.0)
[2016-11-14] VITALS (77 sets, daily range): BP systolic 87–135; BP diastolic 47–70
[2016-11-14 04:55] LABS: ABG SAMPLE TYPE ARTERIAL; BE(vivo) -9.6 mmol/L (-2 to +3); HCO3 15.6 mmol/L (22.0-26.0); LACTATE 1.32 mmol/L (0.5-2.0); O2(CT) 15.3 mL/dL (15.0-23.0); O2Hb 94.9 % (92.0-98.0); PCO2 31.8 mmHg (35.0-45.0); PO2 89.3 mmHg (80.0-100.0); sO2 96.2 % (92.0-98.0); tCO2 16.6 mmol/L (24.0-30.0)
[2016-11-14 04:56] LABS: STICK SITE R.BRACHIAL; pH 7.309 (7.360-7.450)
[2016-11-14 05:50] LABS: HEMATOCRIT 32.4 % (37.0-47.0); HEMOGLOBIN 10.6 gm/dL (12.0-15.0); MANUAL DIFF YES; MCH 27.1 pg (26.0-34.0); MCHC 32.8 g/dL (28.0-37.0); MCV 82.7 fL (80.0-100.0); PLATELET COUNT 174 thou/uL (150-400); RBC 3.91 mil/uL (4.20-5.00); RDW 18.7 % (10.5-14.5); WBC 11.8 thou/uL (4.0-11.0)
[2016-11-14 06:02] LABS: INR 1.2
[2016-11-14 06:06] LABS: ALBUMIN 1.2 g/dL (3.4-5.0); CALCIUM 6.3 mg/dL (8.5-10.1); CREATININE 1.8 mg/dL (0.6-1.0); TOTAL BILIRUBIN 0.3 mg/dL (<0.1-1.0); TOTAL PROTEIN 3.9 g/dL (6.4-8.2)
[2016-11-14 08:43] LABS: ABSOLUTE NEUTROPHILS 10.9 thou/uL (1.4-8.2); METAMYELOCYTES 2 %; NUCLEATED RBCS 1 /100WBC; TOTAL CELL COUNT 100
[2016-11-14 08:44] LABS: ANISOCYTOSIS 2+; POLYCHROMASIA OCCASIONAL
[2016-11-14 23:12] LABS: MAGNESIUM 1.9 mg/dL (1.8-2.4); POTASSIUM 3.4 mmol/L (3.5-5.1)
[2016-11-15] VITALS (59 sets, daily range): BP systolic 88–128; BP diastolic 43–63
[2016-11-15 06:56] LABS: HEMATOCRIT 32.5 % (37.0-47.0); HEMOGLOBIN 10.7 gm/dL (12.0-15.0); MCH 27.6 pg (26.0-34.0); MCHC 32.8 g/dL (28.0-37.0); PLATELET COUNT 170 thou/uL (150-400); RBC 3.87 mil/uL (4.20-5.00); RDW 19.2 % (10.5-14.5); WBC 8.5 thou/uL (4.0-11.0)
[2016-11-15 06:58] LABS: MANUAL DIFF YES
[2016-11-15 07:15] LABS: ALBUMIN 1.1 g/dL (3.4-5.0); CALCIUM 6.7 mg/dL (8.5-10.1); CREATININE 1.6 mg/dL (0.6-1.0); POTASSIUM 3.6 mmol/L (3.5-5.1); TOTAL BILIRUBIN 0.2 mg/dL (<0.1-1.0); TOTAL PROTEIN 3.8 g/dL (6.4-8.2)
[2016-11-15 08:52] LABS: ABSOLUTE NEUTROPHILS 7.7 thou/uL (1.4-8.2); ATYPICAL LYMPHS 1 %; TOTAL CELL COUNT 100
[2016-11-15 08:53] LABS: ANISOCYTOSIS SLIGHT; POIKILOCYTOSIS SLIGHT
[2016-11-16] VITALS (15 sets, daily range): BP systolic 104–124; BP diastolic 56–73
[2016-11-16 04:54] LABS: HEMOGLOBIN 10.4 gm/dL (12.0-15.0); MCHC 33.1 g/dL (28.0-37.0); PLATELET COUNT 169 thou/uL (150-400); RBC 3.78 mil/uL (4.20-5.00)
[2016-11-16 04:56] LABS: HEMATOCRIT 31.4 % (37.0-47.0); MANUAL DIFF YES; MCH 27.5 pg (26.0-34.0); MCV 83.1 fL (80.0-100.0); RDW 19.1 % (10.5-14.5); WBC 6.5 thou/uL (4.0-11.0)
[2016-11-16 05:00] LABS: CALCIUM 7.1 mg/dL (8.5-10.1); CREATININE 1.2 mg/dL (0.6-1.0); POTASSIUM 3.2 mmol/L (3.5-5.1)
[2016-11-16 05:06] LABS: ABG SAMPLE TYPE ARTERIAL; BE(vivo) -8.9 mmol/L (-2 to +3); LACTATE 0.89 mmol/L (0.5-2.0); O2(CT) 14.6 mL/dL (15.0-23.0); O2Hb 94.8 % (92.0-98.0); PCO2 26.6 mmHg (35.0-45.0); PO2 86.5 mmHg (80.0-100.0); sO2 96.5 % (92.0-98.0); tCO2 15.8 mmol/L (24.0-30.0)
[2016-11-16 05:08] LABS: STICK SITE R.RADIAL
[2016-11-16 05:31] LABS: ABSOLUTE NEUTROPHILS 5.9 thou/uL (1.4-8.2); ANISOCYTOSIS 1+; PLATELET ESTIMATE NORMAL; TOTAL CELL COUNT 100
[2016-11-16 05:32] LABS: POLYCHROMASIA SLIGHT
[2016-11-17 05:00] VITALS: BP 116/58
[2016-11-17 05:36] LABS: HEMOGLOBIN 10.2 gm/dL (12.0-15.0); MCH 27.3 pg (26.0-34.0); MCHC 32.9 g/dL (28.0-37.0); MCV 82.9 fL (80.0-100.0); RBC 3.74 mil/uL (4.20-5.00); WBC 6.1 thou/uL (4.0-11.0)
[2016-11-17 06:01] LABS: CALCIUM 6.7 mg/dL (8.5-10.1); CREATININE 1.1 mg/dL (0.6-1.0); POTASSIUM 3.3 mmol/L (3.5-5.1)
[2016-11-17 09:40] VITALS: BP 127/62
[2016-11-17 17:30] VITALS: BP 130/71
[2016-11-17 20:00] VITALS: BP 135/79
[2016-11-18 04:00] VITALS: BP 124/65
[2016-11-18 06:35] LABS: CREATININE 1.1 mg/dL (0.6-1.0); MAGNESIUM 1.5 mg/dL (1.8-2.4); POTASSIUM 3.9 mmol/L (3.5-5.1)
[2016-11-18 07:45] VITALS: BP 125/72
[2016-11-18 11:45] VITALS: BP 147/73
[2016-11-18 15:10] VITALS: BP 137/69
[2016-11-18 19:59] VITALS: BP 137/73
[2016-11-19 04:08] VITALS: BP 129/68
[2016-11-19 08:02] VITALS: BP 146/70
[2016-11-19 11:14] VITALS: BP 126/65
[2016-11-19 16:11] VITALS: BP 139/84
[2016-11-19 20:06] VITALS: BP 115/62
[2016-11-20 04:28] VITALS: BP 124/69
[2016-11-20 05:24] LABS: HEMATOCRIT 30.5 % (37.0-47.0); HEMOGLOBIN 10.1 gm/dL (12.0-15.0); MCH 27.5 pg (26.0-34.0); MCHC 33.1 g/dL (28.0-37.0); RBC 3.67 mil/uL (4.20-5.00); RDW 18.7 % (10.5-14.5); WBC 5.8 thou/uL (4.0-11.0)
[2016-11-20 05:40] LABS: CALCIUM 6.8 mg/dL (8.5-10.1); CREATININE 0.9 mg/dL (0.6-1.0); POTASSIUM 3.3 mmol/L (3.5-5.1)
[2016-11-20 08:12] VITALS: BP 127/61
[2016-11-20 12:00] VITALS: BP 130/69
[2016-11-20 15:42] VITALS: BP 133/70
[2016-11-20 19:39] VITALS: BP 126/4; BP 126/64
[2016-11-21 05:50] VITALS: BP 140/65
[2016-11-21 05:51] LABS: HEMATOCRIT 30.2 % (37.0-47.0); HEMOGLOBIN 10.1 gm/dL (12.0-15.0); MCH 27.6 pg (26.0-34.0); MCHC 33.5 g/dL (28.0-37.0); MCV 82.5 fL (80.0-100.0); RBC 3.67 mil/uL (4.20-5.00); RDW 18.9 % (10.5-14.5); WBC 5.9 thou/uL (4.0-11.0)
[2016-11-21 06:06] LABS: CALCIUM 6.7 mg/dL (8.5-10.1); CREATININE 0.8 mg/dL (0.6-1.0); POTASSIUM 3.4 mmol/L (3.5-5.1)
[2016-11-21 08:07] VITALS: BP 131/67
[2016-11-21 12:15] VITALS: BP 112/68
[2016-11-21 15:09] VITALS: BP 120/66
[2016-11-21] MEDS ORDERED: PROTONIX40 M1 PO (17:08)
[2016-11-21] MEDS ORDERED: CEPHALEXIN 500500 M3 PO (17:08)
[2016-11-21] MEDS ORDERED: VANCOMYCIN100 MG/M2 PO (17:08)
[2016-11-21] MEDS ORDERED: LASIX 40 MG TAB40 M1 PO (17:08)
[2016-11-21 20:06] LABS: HISTOPLASMA MYCELIAL-ID Negative (Negative)
[2016-11-22 23:08] LABS: HISTOPLASMA MYCELIAL-CF Negative (Neg:<1:2)
== END 2016-11-21 18:07 | DRG 871 ==
LOC: ER 16:00 → EROBS 16:56 → ICU 16:56 → 4W 11-16 10:43
PROVIDERS: Emergency Medicine; Family Medicine; Hospitalist; Internal Medicine Hematology & Oncology; Internal Medicine Pulmonary Disease; Nurse Practitioner Family; Surgery
DX: A41.59 Other Gram-negative sepsis (principal); R65.21 Severe sepsis with septic shock; E43 Unspecified severe protein-calorie malnutrition; K50.90 Crohn's disease, unspecified, without complications; E87.0 Hyperosmolality and hypernatremia; N39.0 Urinary tract infection, site not specified; N17.9 Acute kidney failure, unspecified; K92.2 Gastrointestinal hemorrhage, unspecified; D62 Acute posthemorrhagic anemia; D68.9 Coagulation defect, unspecified; E78.5 Hyperlipidemia, unspecified; E03.9 Hypothyroidism, unspecified; K52.9 Noninfective gastroenteritis and colitis, unspecified; E87.6 Hypokalemia; D72.825 Bandemia; I10 Essential (primary) hypertension; I73.9 Peripheral vascular disease, unspecified; J44.9 Chronic obstructive pulmonary disease, unspecified; E87.70 Fluid overload, unspecified; I48.91 Unspecified atrial fibrillation; E86.0 Dehydration; L89.159 Pressure ulcer of sacral region, unspecified stage; E87.8 Other disorders of electrolyte and fluid balance, not elsewhere classified; F32.9 Major depressive disorder, single episode, unspecified; Z87.891 Personal history of nicotine dependence; Z79.899 Other long term (current) drug therapy; Z88.2 Allergy status to sulfonamides; Z88.0 Allergy status to penicillin; Z82.49 Family history of ischemic heart disease and other diseases of the circulatory system; Z80.8 Family history of malignant neoplasm of other organs or systems; Z79.01 Long term (current) use of anticoagulants; Z68.26 Body mass index [BMI] 26.0-26.9, adult
CPT/HCPCS: 10045; 10078; 62110; 62900; 70005

== ENCOUNTER 2016-11-21 16:04 | Inpatient (IN) | payer OTHER, MEDICARE ==
[~2016-11-21] VITALS: Ht 160 cm; Wt 75.4 kg
--- NOTE | ~2016-11-21 | HC ---
[facility] [place] [address] CONSULTATION Name: IVETTE ANTUNEZ Room #: 516-1 ADM IN M.R.#: [id number] Admission: 11/21/16 Attend Phys: Jose Alfredo Menendez MD Discharge: Date of : 41 Report #: [id number] THIS REPORT FOR: //name// CC: Jose Alfredo Francis DATE OF SERVICE: 11/30/2016 ATTENDING PHYSICIAN: Jose Alfredo Menendez MD CREATIVE SPECIALIST: Prudencio Mack, PhD CLINICAL PRESENTATION: The patient is a 71-year-old female admitted to the [facility] Unit for a comprehensive inpatient rehabilitation program to improve functional mobility and activities of daily living and self-care secondary to impairment from medical complexity and generalized debilitation. PAST MEDICAL HISTORY: Includes severe diarrhea, septic shock, severe colitis, [place], lower GI bleed, Crohn's disease. Her medical problems also include atrial fibrillation with rapid ventricular response, colitis, hypokalemia, hypernatremia, leukocytosis, and sacral wound. A complete description of her medical condition and history can be found in her medical record. Neuropsychological consultation was requested to provide assistance in the assessment of emotional status and to provide psychological services. Prior to this most recent deterioration in her medical condition, she was living independently with a male diagnostic cardiac sonographer. The patient does not have any children. This is her second marriage. She is a high school graduate. 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 She had been working up until this recent medical deterioration. TECHNIQUES UTILIZED: Clinical interview, review of medical records, staff consultation and behavioral observation. EXAMINATION FINDINGS: The patient was alert and cooperative with the assessment. She accurately described events surrounding her admission. The patient describes frustration and irritability regarding the lingering nature of her medical condition. She has had an extended hospitalization. At this time, difficulty with eating and participation in therapeutic activity is described. The patient reports her symptoms to include tiredness and fatigue during the day, anxiety and depression along with decreased appetite. The patient has been having difficulty following a high protein diet. Feeling out of control was described. The patient also reports worry and concern in regard to practical problem solving, a variety of situations that include needing to move from her [facility] [address] [place] [address] CONSULTATION Name: IVETTE ANTUNEZ SEBEWAING Room #: 5161 ADM IN [facility].#: [id number] Admission: 11/21/16 Attend Phys: Jose Alfredo Menendez MD Discharge: Date of : 41 Report #: [id number] independent home to an assisted living or structured [place] [facility] environment. RECOMMENDATIONS: Continued psychiatric consult to assist in the management of an antidepressant medication. Psychological counseling is of benefit and should focus on strength and resources that have remained well intact. Defining specific times during the day for practical problem solving, example, during speech therapy. Use of relaxation techniques should be encouraged when anxiety is elevated. Verbal praise and compliments should be provided when patient partially cooperates to any extent during therapies, recreation and attempts at eating. She is having a decrease of confidence, lowered self-esteem and a depressed mood, which results in a more pessimistic outlook. Thank you very much for allowing me to provide the consultation on this patient. By: 1811 0025 Prudencio Mack, PhD /nt
[~2016-11-21 16:04] MED LIST changes: +CHOLESTYRAMINE PER TUBE; +CHOLESTYRAMINE R5 GM PER TUBE; +CLARITIN10 MG PO; +CLONAZEPAM 1 MG1 M1 PER TUBE; +DRONABINOL5 MG PO; +IRON325 PER TUBE; +LACTOBACILLUS PER TUBE; +LEVOTHYROXINE100 MC1 IV; +LEXAPRO 10 MG T10 M1 PER TUBE; +LIPITOR 20 MG T20 M1 PO; +MESALAMINE800 MG PO; +METRONIDAZOLE IV; +NYSTATIN 1100000 U/M PO; +PANTOPRAZOLE IV; +VANCOMYCIN100 MG/M1 PO
[2016-11-21] MEDS ORDERED: LASIX 40 MG TAB40 M1 PO (17:08)
[2016-11-21] MEDS ORDERED: CEPHALEXIN 500500 M3 PO (17:08)
[2016-11-21] MEDS ORDERED: PROTONIX40 M1 PO (17:08)
[2016-11-21] MEDS ORDERED: VANCOMYCIN100 MG/M2 PO (17:08)
[2016-11-21 18:54] VITALS: BP 126/81
[2016-11-22 04:00] VITALS: BP 132/70
[2016-11-22 07:11] LABS: HEMATOCRIT 30.8 % (37.0-47.0); HEMOGLOBIN 10.2 gm/dL (12.0-15.0); MCH 27.5 pg (26.0-34.0); MCHC 33.2 g/dL (28.0-37.0); MCV 82.6 fL (80.0-100.0); RBC 3.73 mil/uL (4.20-5.00); RDW 18.6 % (10.5-14.5); WBC 6.2 thou/uL (4.0-11.0)
[2016-11-22 08:38] LABS: CALCIUM 7.1 mg/dL (8.5-10.1); CREATININE 0.8 mg/dL (0.6-1.0); POTASSIUM 3.9 mmol/L (3.5-5.1)
[2016-11-22 17:13] VITALS: BP 140/73
[2016-11-23 05:30] VITALS: BP 136/78
[2016-11-23 16:00] VITALS: BP 123/74
[2016-11-24 05:30] VITALS: BP 132/74
[2016-11-24 16:00] VITALS: BP 140/80
[2016-11-25 04:35] VITALS: BP 124/57
[2016-11-25 15:30] VITALS: BP 109/57
[2016-11-26 04:38] VITALS: BP 123/63
[2016-11-26 07:06] LABS: ALBUMIN 1.4 g/dL (3.4-5.0); CALCIUM 6.6 mg/dL (8.5-10.1); CREATININE 0.9 mg/dL (0.6-1.0); PHOSPHORUS 2.4 mg/dL (2.5-4.9); POTASSIUM 3.9 mmol/L (3.5-5.1)
[2016-11-26 16:00] VITALS: BP 134/63
[2016-11-27 05:51] VITALS: BP 146/84
[2016-11-27 16:00] VITALS: BP 130/64
[2016-11-28 06:21] VITALS: BP 164/84
[2016-11-28 16:00] VITALS: BP 110/68
[2016-11-29 04:00] VITALS: BP 141/67
[2016-11-29 05:47] LABS: HEMATOCRIT 29.9 % (37.0-47.0); HEMOGLOBIN 9.7 gm/dL (12.0-15.0); MCH 27.8 pg (26.0-34.0); MCHC 32.4 g/dL (28.0-37.0); MCV 85.6 fL (80.0-100.0); PLATELET COUNT 106 thou/uL (150-400); RDW 19.3 % (10.5-14.5); WBC 6.6 thou/uL (4.0-11.0)
[2016-11-29 05:54] LABS: MANUAL DIFF YES
[2016-11-29 06:10] LABS: ALBUMIN 1.5 g/dL (3.4-5.0); CALCIUM 6.6 mg/dL (8.5-10.1); CREATININE 0.9 mg/dL (0.6-1.0); MAGNESIUM 1.1 mg/dL (1.8-2.4); POTASSIUM 4.5 mmol/L (3.5-5.1); TOTAL BILIRUBIN 0.2 mg/dL (<0.1-1.0); TOTAL PROTEIN 3.9 g/dL (6.4-8.2)
[2016-11-29 07:22] LABS: ABSOLUTE NEUTROPHILS 6.1 thou/uL (1.4-8.2); ANISOCYTOSIS 2+; LARGE PLATELETS OCCASIONAL; PROMYELOCYTES 1 %; TOTAL CELL COUNT 100; TOXIC GRANULATION 1+
[2016-11-29 07:23] LABS: HYPOCHROMASIA 1+; SCHISTOCYTES FEW
[2016-11-29 16:00] VITALS: BP 90/60
[2016-11-30 05:00] VITALS: BP 134/62
[2016-11-30 05:21] LABS: ALBUMIN 1.5 g/dL (3.4-5.0); CALCIUM 6.8 mg/dL (8.5-10.1); CREATININE 0.9 mg/dL (0.6-1.0); MAGNESIUM 1.3 mg/dL (1.8-2.4); POTASSIUM 4.1 mmol/L (3.5-5.1); TOTAL BILIRUBIN 0.2 mg/dL (<0.1-1.0); TOTAL PROTEIN 3.9 g/dL (6.4-8.2)
[2016-11-30 16:15] VITALS: BP 134/59
[2016-12-01 05:53] VITALS: BP 140/62
[2016-12-01 17:21] VITALS: BP 139/62
[2016-12-02 06:45] VITALS: BP 140/64
[2016-12-02 06:53] LABS: ALBUMIN 1.6 g/dL (3.4-5.0); CREATININE 0.9 mg/dL (0.6-1.0); MAGNESIUM 1.4 mg/dL (1.8-2.4); POTASSIUM 3.8 mmol/L (3.5-5.1); TOTAL BILIRUBIN 0.2 mg/dL (<0.1-1.0); TOTAL PROTEIN 4.1 g/dL (6.4-8.2)
[2016-12-03 06:23] VITALS: BP 122/55
[2016-12-03 16:40] VITALS: BP 113/58
[2016-12-04 04:41] VITALS: BP 111/56
[2016-12-04 16:00] VITALS: BP 120/70
[2016-12-05 05:49] VITALS: BP 137/74
[2016-12-05 16:00] VITALS: BP 120/66
[2016-12-06 05:45] VITALS: BP 144/66
[2016-12-06] MEDS ORDERED: PREVALITE PACKE1 PKT PER TUBE (14:41)
[2016-12-06] MEDS ORDERED: PREDNISONE 10 M10 MG PO (14:41)
[2016-12-06] MEDS ORDERED: FLOMAX0.4 MG PO (14:41)
[2016-12-06] MEDS ORDERED: REMERON15 MG PO (14:41)
[2016-12-06] MEDS ORDERED: MAGNESIUM OXID400 MG PO (14:41)
[2016-12-06] MEDS ORDERED: FLAGYL500 MG PO (14:41)
== END 2016-12-06 17:30 | DRG 947 ==
PROVIDERS: Hospitalist; Nurse Practitioner; Physical Medicine & Rehabilitation
DX: R53.81 Other malaise (principal); E43 Unspecified severe protein-calorie malnutrition; N17.9 Acute kidney failure, unspecified; K92.2 Gastrointestinal hemorrhage, unspecified; N39.0 Urinary tract infection, site not specified; A04.7 Enterocolitis due to Clostridium difficile; F32.2 Major depressive disorder, single episode, severe without psychotic features; K50.90 Crohn's disease, unspecified, without complications; E87.2 Acidosis; E87.0 Hyperosmolality and hypernatremia; D68.9 Coagulation defect, unspecified; I48.91 Unspecified atrial fibrillation; E78.5 Hyperlipidemia, unspecified; E03.9 Hypothyroidism, unspecified; I10 Essential (primary) hypertension; I73.9 Peripheral vascular disease, unspecified; Z66 Do not resuscitate; B96.1 Klebsiella pneumoniae [K. pneumoniae] as the cause of diseases classified elsewhere; E16.2 Hypoglycemia, unspecified; E83.42 Hypomagnesemia; F41.9 Anxiety disorder, unspecified; E66.9 Obesity, unspecified; M62.81 Muscle weakness (generalized); H11.89 Other specified disorders of conjunctiva; E87.6 Hypokalemia; T45.515A Adverse effect of anticoagulants, initial encounter; Z68.29 Body mass index [BMI] 29.0-29.9, adult; Z88.0 Allergy status to penicillin; Z88.2 Allergy status to sulfonamides; Z95.820 Peripheral vascular angioplasty status with implants and grafts; Z87.891 Personal history of nicotine dependence; Z80.8 Family history of malignant neoplasm of other organs or systems; Z82.49 Family history of ischemic heart disease and other diseases of the circulatory system; Y92.89 Other specified places as the place of occurrence of the external cause
CPT/HCPCS: 10112

== ENCOUNTER → 2017-11-21 | Outpatient (CLI) | payer OTHER, MEDICARE ==
[~2017-11-21] MED LIST changes: +CEPHALEXIN 500500 M3 PO; +LASIX 40 MG TAB40 M1 PO; +MAGNESIUM OXID400 MG PO; +PREDNISONE 10 M10 MG PO; +PREVALITE PACKE1 PKT PER TUBE; +PROTONIX40 M1 PO; +REMERON15 MG PO; +VANCOMYCIN100 MG/M2 PO
[2017-11-21 09:43] LABS: CREATININE 1.3 mg/dL (0.6-1.0)
== END ==
LOC: CAT 09:02
PROVIDERS: Nuclear Medicine Nuclear Cardiology
DX: Z01.812 Encounter for preprocedural laboratory examination (principal); I71.4 Abdominal aortic aneurysm, without rupture; K80.80 Other cholelithiasis without obstruction; I25.10 Atherosclerotic heart disease of native coronary artery without angina pectoris; Z95.828 Presence of other vascular implants and grafts